=== PATIENT | female | born 1945 | race Caucasian/White ===

== ENCOUNTER 2017-01-31 09:22 | Inpatient (IN) | payer OTHER, MEDICARE ==
[~2017-01-31] VITALS: Ht 160 cm; Wt 107.3 kg
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
--- NOTE | 2017-01-31 14:08 | ED ORDER SUMMARY ---
..... Patient: ELVIS CORTEZ OrderSheet [facility] VisitID: [id number] [address] [place] [address] 71y, F Registration Date/Time: 01/31/2017 ORDER SHEET Weight: 97.5 kg (stated) Allergies: LIsinopril GENERAL ORDERS: Chest 2V Urgent (10:34 01/31/2017 Ann LEYVA) (Ack 10:37 Edwin) (11:07 MARYoerner) Hand 3 or 4V Right Urgent (10:34 01/31/2017 Ann LEYVA) (Ack 10:37 Edwin) (11:07 MARYoerner) Jointer Submarine Cable (Continuous) (10:34 01/31/2017 Ann LEYVA) (11:26 SStone R.N.) CBC w Diff Urgent (10:35 01/31/2017 Ann LEYVA) (Ack 10:37 Edwin) (11:26 SStone R.N.) CMP Urgent (10:35 01/31/2017 Ann LEYVA) (Ack 10:37 Edwin) (11:26 SStone R.N.) UA-Culture if indicated Urgent (10:35 01/31/2017 Ann LEYVA) (Ack 10:37 Edwin) (13:48 ALawrence ER Tech1) Amylase Urgent (10:35 01/31/2017 Ann LEYVA) (Ack 10:37 Edwin) (11:26 SStone R.N.) Lipase Urgent (10:35 01/31/2017 Ann LEYVA) (Ack 10:37 Edwin) (11:26 SStone R.N.) CPK Urgent (10:35 01/31/2017 Ann LEYVA) (Ack 10:37 Edwin) (11:26 SStone R.N.) Troponin-I Urgent (10:35 01/31/2017 Ann LEYVA) (Ack 10:37 Edwin) (11:26 SStone R.N.) Pulse oximeter (10:35 01/31/2017 Ann LEYVA) (11:26 SStone R.N.) EKG - ER Stat (10:35 01/31/2017 Ann LEYVA) (10:37 Edwin) Ribs Bilat Urgent (14:07 01/31/2017 Ann LEYVA) (Ack 14:10 Edwin) (14:30 Edwin) MEDICATION ORDERS: IV FLUIDS: Dilaudid IV 0.5 mg (HIGH ALERT MEDICATION, NOW) (10:35 01/31/2017 Ann LEYVA) (10:54 SStone R.N.) Zofran IV 4 mg (NOW) (10:35 01/31/2017 Ann LEYVA) (10:54 SStone R.N.) IV Saline Lock (10:35 01/31/2017 Ann LEYVA) (Ack 10:54 SStone R.N.) Dilaudid IV 0.25 mg (HIGH ALERT MEDICATION, NOW) (16:18 01/31/2017 SStone R.N. verbal order read back to Ann LEYVA) (16:18 SStone R.N.) ORDER SHEET NOTES: [Electronically signed by Liz Florian R.N. (18:21 01/31/2017)] [Electronically signed by Bubba Rushing MD (21:37 02/01/2017)] [Electronically locked/signed by Liz Florian R.N. (18:21 01/31/2017)]
--- NOTE | 2017-01-31 14:08 | ED ORDER SUMMARY ---
..... Patient: ELVIS CORTEZ OrderSheet [facility] VisitID: [id number] [address] [place] [address] 71y, F Registration Date/Time: 01/31/2017 ORDER SHEET Weight: 97.5 kg (stated) Allergies: LIsinopril GENERAL ORDERS: Chest 2V Urgent (10:34 01/31/2017 Ann LEYVA) (Ack 10:37 Edwin) (11:07 MARYoerner) Hand 3 or 4V Right Urgent (10:34 01/31/2017 Ann LEYVA) (Ack 10:37 Edwin) (11:07 MARYoerner) Dwarf Tree Grower (Continuous) (10:34 01/31/2017 Ann LEYVA) (11:26 SStone R.N.) CBC w Diff Urgent (10:35 01/31/2017 Ann LEYVA) (Ack 10:37 Edwin) (11:26 SStone R.N.) CMP Urgent (10:35 01/31/2017 Ann LEYVA) (Ack 10:37 Edwin) (11:26 SStone R.N.) UA-Culture if indicated Urgent (10:35 01/31/2017 Ann LEYVA) (Ack 10:37 Edwin) (13:48 ALawrence ER Tech1) Amylase Urgent (10:35 01/31/2017 Ann LEYVA) (Ack 10:37 Edwin) (11:26 SStone R.N.) Lipase Urgent (10:35 01/31/2017 Ann LEYVA) (Ack 10:37 Edwin) (11:26 SStone R.N.) CPK Urgent (10:35 01/31/2017 Ann LEYVA) (Ack 10:37 Edwin) (11:26 SStone R.N.) Troponin-I Urgent (10:35 01/31/2017 Ann LEYVA) (Ack 10:37 Edwin) (11:26 SStone R.N.) Pulse oximeter (10:35 01/31/2017 Ann LEYVA) (11:26 SStone R.N.) EKG - ER Stat (10:35 01/31/2017 Ann LEYVA) (10:37 Edwin) Ribs Bilat Urgent (14:07 01/31/2017 Ann LEYVA) (Ack 14:10 Edwin) (14:30 Edwin) MEDICATION ORDERS: IV FLUIDS: Dilaudid IV 0.5 mg (HIGH ALERT MEDICATION, NOW) (10:35 01/31/2017 Ann LEYVA) (10:54 SStone R.N.) Zofran IV 4 mg (NOW) (10:35 01/31/2017 Ann LEYVA) (10:54 SStone R.N.) IV Saline Lock (10:35 01/31/2017 Ann LEYVA) (Ack 10:54 SStone R.N.) Dilaudid IV 0.25 mg (HIGH ALERT MEDICATION, NOW) (16:18 01/31/2017 SStone R.N. verbal order read back to Ann LEYVA) (16:18 SStone R.N.) ORDER SHEET NOTES: [Electronically signed by Liz Florian R.N. (18:21 01/31/2017)] [Electronically signed by Bubba Rushing MD (21:37 02/01/2017)] [Electronically locked/signed by Liz Florian R.N. (18:21 01/31/2017)]
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
--- NOTE | 2017-01-31 15:41 | DIAGNOSTIC IMAGING REPORT ---
PROCEDURE: XR RIBS BILATERAL INDICATION: TRAUMA/INJURY TECHNIQUE: Five views of the right and left ribs with single PA view chest. COMPARISON: None. FINDINGS: LEFT RIBS: No displaced rib fractures. No suspicious rib lesions. RIGHT RIBS: No displaced rib fractures. No suspicious rib lesions. CHEST: Normal cardiomediastinal contour. Clear lungs without pleural effusion, pneumothorax, or contusion. The other visible osseous structures are intact. IMPRESSION: 1. Intact ribs. 2. Normal chest without radiographic evidence of trauma.
[2017-01-31 17:43] VITALS: BP 135/90
[2017-01-31] MEDS ORDERED: VITAMIN D-31000 UNIT PO (18:33)
[2017-01-31] MEDS ORDERED: CITALOPRAM HYDR20 MG PO (18:33)
[2017-01-31] MEDS ORDERED: LEVO-T112 MCG PO (18:36)
[2017-01-31] MEDS ORDERED: CORGARD20 MG PO (18:37)
[2017-01-31] MEDS ORDERED: HCTZ/TRIAMTEREN1 TA1 PO (18:37)
[2017-01-31] MEDS ORDERED: UROCIT-K 10 PO (18:39)
[2017-01-31 21:56] VITALS: BP 145/73
[2017-01-31 22:13] VITALS: BP 145/50
[2017-01-31 23:27] VITALS: BP 147/47
[2017-02-01] VITALS (22 sets, daily range): BP systolic 91–1112; BP diastolic 44–77
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
--- NOTE | 2017-02-01 07:39 | DIAGNOSTIC IMAGING REPORT ---
PROCEDURE: XR CHEST 1 VIEW INDICATION: Rep distress TECHNIQUE: Single view chest. 07:06 hours COMPARISON: 01/31/2017 FINDINGS: Low lung volumes. Lordotic patient position. Moderate cardiomegaly. Normal aortic contour. No central venous congestion. Left retrocardiac atelectatic change. The visible lung sierra are otherwise clear. No pneumothorax or new pleural effusion. Intact osseous structures. IMPRESSION: 1. Cardiomegaly with retrocardiac atelectasis. 2. No radiographic evidence of CHF.
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
--- NOTE | 2017-02-01 10:49 | DIAGNOSTIC IMAGING REPORT ---
PROCEDURE: CTA THORAX WITH CONTRAST INDICATION: resp failure, high D-dimer TECHNIQUE: 85 ml of Isovue 370 was injected intravenously and axial images were obtained of the entire thorax with 3D sagittal and coronal MIP reconstructions. COMPARISON: Chest x-ray 02/01/2017. FINDINGS: No evidence of pulmonary emboli, aortic dissection or aneurysm. Mild bibasilar atelectasis versus pneumonia. No pneumothorax. No effusion or adenopathy. Mild atherosclerosis of the aorta. Mild cardiomegaly. There are fractures of the right 4th to 9th ribs with no to minimal displacement. Mild degenerative changes of the spine. Liver contour irregularity suggestive of cirrhosis. Several small calcified gallstones. IMPRESSION: 1. Fractures of the right 4th to 9th ribs with no to minimal displacement 2. Mild bibasilar atelectasis versus pneumonia 3. Mild cardiomegaly 4. Cirrhosis 5. Cholelithiasis 6. Results discussed with Dr. Munoz
[2017-02-01] MEDS ORDERED: CYCLOBENZAPRINE10 MG PO (13:16)
--- NOTE | 2017-02-01 21:38 | ED MAR SUMMARY ---
..... Medication Administration Record [facility] [address] [place] [address] Patient: ELVIS CORTEZ Visit ID: [id number] 71y, F Weight: 97.5 kg Height/Length: 63 in BMI: 38.1 ALLERGIES: LIsinopril Given 10:49 01/31/2017 Liz Florian R.N. Medication Administered: DILAUDID [IVP] (HYDROMORPHONE HCL PF), Dose: 0.5 mg IVP over 2 minute(s), Site: #1 left AC. Medication Ordered: Dilaudid IV 0.5 mg (HIGH ALERT MEDICATION, NOW). Given 10:54 01/31/2017 Liz Florian R.N. Medication Administered: ZOFRAN [IVP] (ONDANSETRON HCL), Dose: 4 mg IVP over 2 minute(s), Site: #1 left AC. Medication Ordered: Zofran IV 4 mg (NOW). Given 16:18 01/31/2017 Liz Florian R.N. Medication Administered: DILAUDID [IVP] (HYDROMORPHONE HCL PF), Dose: 0.25 mg IVP over 2 minute(s), Site: #1 left AC. Medication Ordered: Dilaudid IV 0.25 mg (HIGH ALERT MEDICATION, NOW).
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
--- NOTE | 2017-02-01 21:38 | ED MED RECONCILIATION SUMMARY ---
Patient: ELVIS CORTEZ Medication Reconciliation Report [facility] VisitID: [id number] [address] [place] [address] 71y, F Registration Date/Time: 01/31/2017 Weight: 97.5 kg Height/Length: 63 in. BMI: 38.1 ALLERGIES: LIsinopril The patient's Home Medications are listed below: THE FOLLOWING MEDICATIONS NEED TO BE RECONCILED: Citalopram 30 mg daily HCTZ 25 MG DAILY Levothyroxine 112 mcg daily Nadolol 40 mg daily Trazodone 50 mg 1-2 tabets qhs prn Vitamin D daily The source(s) of the original Home Medication information: Not obtained. The following Medications were given to the patient in the Emergency Department: Dilaudid [IVP] IVP 0.5 mg, administered: 01/31/2017 10:49:00 AM Zofran [IVP] IVP 4 mg, administered: 01/31/2017 10:54:00 AM Dilaudid [IVP] IVP 0.25 mg, administered: 01/31/2017 4:18:00 PM The following Medications were prescribed to the patient: None.
--- NOTE | 2017-02-01 21:38 | ED MAR SUMMARY ---
..... Medication Administration Record [facility] [address] [place] [address] Patient: ELVIS CORTEZ Visit ID: [id number] 71y, F Weight: 97.5 kg Height/Length: 63 in BMI: 38.1 ALLERGIES: LIsinopril Given 10:49 01/31/2017 Liz Florian R.N. Medication Administered: DILAUDID [IVP] (HYDROMORPHONE HCL PF), Dose: 0.5 mg IVP over 2 minute(s), Site: #1 left AC. Medication Ordered: Dilaudid IV 0.5 mg (HIGH ALERT MEDICATION, NOW). Given 10:54 01/31/2017 Liz Florian R.N. Medication Administered: ZOFRAN [IVP] (ONDANSETRON HCL), Dose: 4 mg IVP over 2 minute(s), Site: #1 left AC. Medication Ordered: Zofran IV 4 mg (NOW). Given 16:18 01/31/2017 Liz Florian R.N. Medication Administered: DILAUDID [IVP] (HYDROMORPHONE HCL PF), Dose: 0.25 mg IVP over 2 minute(s), Site: #1 left AC. Medication Ordered: Dilaudid IV 0.25 mg (HIGH ALERT MEDICATION, NOW).
--- NOTE | 2017-02-01 21:38 | ED MED RECONCILIATION SUMMARY ---
Patient: ELVIS CORTEZ Medication Reconciliation Report [facility] VisitID: [id number] [address] [place] [address] 71y, F Registration Date/Time: 01/31/2017 Weight: 97.5 kg Height/Length: 63 in. BMI: 38.1 ALLERGIES: LIsinopril The patient's Home Medications are listed below: THE FOLLOWING MEDICATIONS NEED TO BE RECONCILED: Citalopram 30 mg daily HCTZ 25 MG DAILY Levothyroxine 112 mcg daily Nadolol 40 mg daily Trazodone 50 mg 1-2 tabets qhs prn Vitamin D daily The source(s) of the original Home Medication information: Not obtained. The following Medications were given to the patient in the Emergency Department: Dilaudid [IVP] IVP 0.5 mg, administered: 01/31/2017 10:49:00 AM Zofran [IVP] IVP 4 mg, administered: 01/31/2017 10:54:00 AM Dilaudid [IVP] IVP 0.25 mg, administered: 01/31/2017 4:18:00 PM The following Medications were prescribed to the patient: None.
[2017-02-02] VITALS (20 sets, daily range): BP systolic 113–156; BP diastolic 42–85
--- NOTE | 2017-02-02 14:17 | Progress Note ---
Subjective General Patient seen and examined. Patient very drowsy still but arousable and able to communicate in full sentences. Patient encourage to use incentive spirometer, however pain is precluding her from using is appropriately. Constitutional Other (unable to respond- too drowsy). Physical Exam Vital Signs / I&Os Vital Signs Date Time Temp Pulse Resp B/P Pulse O2 O2 Flow FiO2 Ox Delivery Rate 02/02 1500 98.4 73 20 126/49 97 Nasal 2.0 Cannula 02/02 1416 77 20 113/48 95 Nasal 2.0 Cannula 02/02 1322 98.8 02/02 1317 73 20 121/64 96 Nasal 2.0 Cannula 02/02 1141 2.0 02/02 1030 2.5 02/02 1000 75 131/44 96 Nasal 2.0 Cannula 02/02 0853 71 24 124/85 Nasal 2.0 Cannula 02/02 0800 2.0 02/02 0759 2.0 02/02 0721 98.2 81 24 126/57 93 Nasal 2.0 Cannula 02/02 0526 98.8 74 20 120/50 93 Nasal 2.0 Cannula 02/02 0432 98.8 65 18 140/56 92 Nasal 2.0 Cannula 02/02 0350 98.6 72 18 128/42 92 Nasal 2.0 Cannula 02/02 0202 98.6 62 18 156/60 92 Nasal 2.0 Cannula 02/02 0105 98.6 78 18 156/57 93 Nasal 2.0 Cannula 02/02 0016 98.6 64 20 143/55 94 Nasal 2.0 Cannula 02/01 2313 130/73 02/01 2312 64 100 Nasal 2.0 Cannula 02/01 2227 98.8 02/01 2219 63 115/50 100 Nasal 2.0 Cannula 02/01 2100 98.1 65 18 91/56 100 Nasal 2.0 Cannula 02/01 2000 97.7 62 18 105/54 100 Nasal 2.0 Cannula 02/01 1959 Nasal 2.0 Cannula 02/01 1913 2.0 02/01 1900 97.7 59 18 107/44 100 Nasal 2.0 Cannula 02/01 1800 98.4 62 18 114/53 100 Nasal 2.0 Cannula 02/01 1611 98.4 58 18 98/50 96 Nasal 2.0 Cannula I&O 02/01 0800 02/01 1600 02/02 0000 Intake Total 560 151 8978 Output Total 470 150 350 Balance 350 269 2455 General Appearance Alert, Oriented X3, No acute distress HEENT Atraumatic, PERRLA, Moist mucous membranes Lungs Clear to auscultation, - decreased air exchange - shallow breathing Neck No JVD, No masses, No thyromegaly Cardiovascular Regular rate and rhythm, No murmurs, gallops, rubs Abdomen Soft, No tenderness, No guarding Extremities No edema, Normal pulses, No tenderness Skin No Breakdown Neurological Normal speech, Normal tone, Cranial nerves intact, Strength 5/5 x4 ext's LAB Results Laboratory Tests 02/01 02/02 02/02 02/02 1800 0400 0510 1013 Blood Gas Sample Site LR RR Total CO2 (24.0 - 30.0 mmol/L) 32.0 29.7 ABG pH (7.35 - 7.45) 7.26 7.23 ABG pCO2 at Pt Temp (35 - 45 mmHg) 67.0 66.2 ABG pO2 at Pt Temp (60.0 - 80.0 mmHg) 64.0 62.6 ABG HCO3 (20.0 - 26.0 mmol/L) 30.0 27.7 ABG O2 Sat Calc/Chiquis (95.1 - 100.0 %) 91.2 90.2 ABG Base Excess (-6.0 - -6.0 mmol/L) 2.6 0.1 ABG Reduced Hgb (%) 8.5 9.7 ABG Carboxyhemoglobin (0.5 - 1.5 %) 2.8 2.4 ABG Methemoglobin (0.4 - 1.5 %) 0.3 -0.9 Duong Test YES YES Other Total Hgb (12.0 - 16.0 g/dL) 9.6 9.4 A-a O2 Gradient (7.0 - 14.0 mmHg) 58.2 75.7 Hgb O2 Saturation (95.0 - 100.0 %) 88.4 88.8 Respiration Rate (/MIN) 22 O2 Liters/Min (0 - 20 L/MIN) 2 2.5 Vent Mode NC SB FiO2 (20 - 101 %) 28 30 Chemistry Plasma Sodium (136 - 145 mmol/L) 141 Plasma Potassium (3.5 - 5.1 mmol/L) 4.9 Plasma Chloride (98 - 107 mmol/L) 107 CO2 (Enzymatic) (21 - 32 mmol/L) 30 BUN (7 - 18 mg/dL) 24 Creatinine (0.6 - 1.3 mg/dL) 1.7 Est GFR ( Amer) (mL/min) 38.27 Est GFR (Non-Af Amer) (mL/min) 31.58 Glucose (70 - 110 mg/dL) 215 Plasma Calcium (8.5 - 10.1 mg/dL) 8.7 Plasma Magnesium (1.8 - 2.4 mg/dL) Cancelled 2.5 Hematology WBC (4.5 - 11.5 K/uL) 15.0 RBC (4.00 - 5.20 M/uL) 3.68 Hgb (12.0 - 16.0 gm/dL) 9.6 Hct (36.0 - 46.0 %) 31.3 MCV (80 - 100 fL) 85 MCH (26 - 34 pg) 26 RDW (11.6 - 14.8 %) 19.6 Neut % (Auto) (50 - 75 %) 83.8 Lymph % (Auto) (25 - 40 %) 6.7 [place] % (Auto) (3 - 14 %) 8.9 Eos % (Auto) (0 - 4 %) 0.5 Baso % (Auto) (0 - 2 %) 0.1 Plt Count, EDTA (150 - 400 K/uL) 80 RBC Morphology (11145 A) 1+ HYPOCHROMIA PUBS MCHC (31 - 37 g/dL) 31 Assessment and Plan Problem List 1. Lung contusion Plan - present with rib fractures - will encourage incentive spirometry - will obtain ABGs periodically - will keep patient on continuous pulse oximetry - pain control warranted albiet with NSAIDs and lidocaine - pt very sensitive to opioids 2. Respiratory failure, unspecified with hypercapnia Plan - secondary to rib fractures and underlying lung disease - pt is developing hypercapnia secondary to inadequate lung expansion - will control pain as much as feasible - will monitor for over sedation - incentive spirometry use 3. HTN (hypertension) Plan - chronic - c/w home medications 4. Cirrhosis of liver Plan - stable - will trend ammonia - will provide lactulose to titrate to 5 bowel movements a day 5. Asthma Plan - stable - will continue with duonebs
[2017-02-03] VITALS (22 sets, daily range): BP systolic 96–195; BP diastolic 40–94
--- NOTE | 2017-02-03 14:10 | Progress Note ---
Subjective General Pt still arousable, however when staff and famiily are not in the room patient does not use incentive spirometry. Patient is otherwise persistenly altered from hypercapnia and pain meds. If patient continues to decompensate will decide to intubate. Constitutional Other (too altered to assess). Physical Exam Vital Signs / I&Os Vital Signs Date Time Temp Pulse Resp B/P Pulse O2 O2 Flow FiO2 Ox Delivery Rate 02/08 1606 2.0 02/08 1449 98.1 95 20 136/42 91 Nasal 2.0 Cannula 02/08 1139 2.0 02/08 1010 98.2 95 20 138/53 93 Nasal 2.0 Cannula 02/08 0912 2.0 02/08 0725 3.5 02/08 0647 98.4 96 24 149/44 93 Nasal 2.0 Cannula 02/08 0300 98.1 86 22 154/51 94 Nasal 2.0 Cannula 02/08 0257 2.0 02/07 2343 2.0 02/07 2230 98.2 80 20 149/54 96 Nasal 3.0 Cannula 02/07 2045 3.0 02/07 2030 Nasal 3.0 Cannula 02/07 2017 4.0 02/07 1903 81 20 142/47 98 Nasal 4.0 Cannula 02/07 1810 98.2 80 20 143/48 97 Nasal 4.0 Cannula 02/07 1808 4.0 I&O 02/07 0800 02/07 1600 02/08 0000 Intake Total 1444 2000 1965 Output Total 328 353 158 Balance 1116 1647 1807 General Appearance Mild distress HEENT PERRLA, Moist mucous membranes Lungs - bilateral ronchi and wheezes Neck No JVD, No masses Cardiovascular Regular rate and rhythm, No murmurs, gallops, rubs Abdomen Soft, - slightly distended Extremities Normal pulses, No tenderness Skin No Breakdown Neurological Normal tone, Cranial nerves intact, No lateralizing signs Psych/Mental Status Mood normal LAB Results Laboratory Tests 02/08 0940 Chemistry Plasma Sodium (136 - 145 mmol/L) 141 Plasma Potassium (3.5 - 5.1 mmol/L) 4.0 Plasma Chloride (98 - 107 mmol/L) 107 CO2 (Enzymatic) (21 - 32 mmol/L) 24 BUN (7 - 18 mg/dL) 30 Creatinine (0.6 - 1.3 mg/dL) 1.2 Est GFR ( Amer) (mL/min) 57.21 Est GFR (Non-Af Amer) (mL/min) 47.20 Glucose (70 - 110 mg/dL) 129 Plasma Calcium (8.5 - 10.1 mg/dL) 8.0 Total Bilirubin (0.0 - 1.0 mg/dL) 2.1 AST (15 - 37 U/L) 41 ALT (12 - 78 U/L) 25 Alkaline Phosphatase (46 - 116 U/L) 87 Total Protein (6.4 - 8.2 g/dL) 5.9 Albumin (3.3 - 5.0 g/dL) 2.4 Hematology WBC (4.5 - 11.5 K/uL) 22.2 Corrected WBC (auto) (K/uL) 22.0 RBC (4.00 - 5.20 M/uL) 3.63 Hgb (12.0 - 16.0 gm/dL) 9.5 Hct (36.0 - 46.0 %) 30.4 MCV (80 - 100 fL) 84 MCH (26 - 34 pg) 26 RDW (11.6 - 14.8 %) 21.7 Neut % (Auto) (50 - 75 %) 78 Lymph % (Auto) (25 - 40 %) 16 [place]oun % (Auto) (3 - 14 %) 0 Eos % (Auto) (0 - 4 %) 1 Baso % (Auto) (0 - 2 %) 0 Band Neutrophils % (0 - 8 %) 3 Metamyelocytes % (0 - 1 %) 2 Myelocytes (0 - 1 %) 0 Nucleated RBCs (0 - 1) 1 Other Cell Type 0 Plt Count, EDTA (150 - 400 K/uL) 125 Anisocytosis (manual) 3+ PUBS MCHC (31 - 37 g/dL) 31 Assessment and Plan Problem List 1. Lung contusion Plan - will provide pain control - will avoid oversedation due to poor liver processing ability - will monitor for over sedation 2. Respiratory failure, unspecified with hypercapnia Plan - pt has evidence of hypercapnia secondary to inadequate lung expansion and existing copd - will attempt bipap - sedation will be required - will encourge incentive spirometry - serial abgs 3. Cirrhosis of liver Plan - known history secondary to Hep C - currently in remission - hepatically adjust medication 4. HTN (hypertension) Plan - controlled - will hold anti-hypertensives in times of hypotension
--- NOTE | 2017-02-03 16:20 | Progress Note ---
Subjective General Patient seen and examined. Patient in the am was seen to have improved mentation , however the patient throughout the morning was waxing and waning in terms of mentation. A discussion was had with the family and it was decided that the best route of action was to intubate the patient electively was made. Patient was a difficult intubation however we were able to nasally intubate the patient with the assistance of a bronchoscope. Patient is otherwise hemodynamically stable. Constitutional Other (unable to assess ). Physical Exam Vital Signs / I&Os Vital Signs Date Time Temp Pulse Resp B/P Pulse O2 O2 Flow FiO2 Ox Delivery Rate 02/03 1607 114 24 106/94 96 Ventilator 02/03 1517 142 195/80 100 02/03 1423 93 100 02/03 1319 91 20 155/56 97 Nasal 2.0 Cannula 02/03 1224 95 20 158/60 93 Nasal 2.0 Cannula 02/03 1131 2.0 02/03 1111 99.1 02/03 1108 91 20 158/64 91 Nasal 1.0 Cannula 02/03 0900 87 20 141/71 94 Nasal 2.0 Cannula 02/03 0808 90 24 148/42 98 Nasal 3.0 Cannula 02/03 0745 Nasal 3.0 Cannula 02/03 0730 3.0 02/03 0657 90 24 133/40 93 Nasal 3.5 Cannula 02/03 0600 98.6 80 22 132/48 95 Nasal 3.5 Cannula 02/03 0520 98.8 87 22 107/73 91 Nasal 3.5 Cannula 02/03 0414 88 25 130/55 87 Nasal 3.5 Cannula 02/03 0312 82 22 120/48 96 Nasal 3.5 Cannula 02/03 0238 3.5 02/03 0210 97.2 83 24 143/54 95 Nasal Cannula 02/03 0114 82 22 128/58 89 Nasal 3.5 Cannula 02/03 0029 99.1 02/03 0019 97.9 87 22 121/51 90 Nasal 4.0 Cannula 02/02 2323 80 20 128/55 95 Nasal 4.0 Cannula 02/02 2200 98.1 81 24 132/59 93 Nasal 4.0 Cannula 02/02 2100 98.4 85 21 118/61 96 Nasal 4.0 Cannula 02/02 2021 Nasal 4.0 Cannula 02/02 2000 98.4 89 22 143/61 98 Nasal 4.0 Cannula 02/02 1905 4.0 02/02 1900 97.9 90 20 136/81 95 Nasal 4.0 Cannula 02/02 1800 98.6 81 20 115/74 91 Nasal 2.0 Cannula 02/02 1700 98.4 79 20 118/56 96 Nasal 2.0 Cannula I&O 02/02 0800 02/02 1600 02/03 0000 Intake Total 1169 598 3962 Output Total 250 Balance 5342 103 4459 General Appearance Alert, Oriented X3, No acute distress HEENT Atraumatic, PERRLA, Moist mucous membranes Lungs - bilateral ronchi with trace wheezes Neck No JVD, No masses Cardiovascular Regular rate and rhythm, No murmurs, gallops, rubs Abdomen Soft, No tenderness Extremities No clubbing, No edema, Normal pulses, No tenderness Skin No Breakdown Neurological Normal speech, Normal tone, Sensation intact, Cranial nerves intact , No lateralizing signs LAB Results Laboratory Tests 02/03 02/03 02/03 0445 0445 0500 Blood Gas Sample Site RR Total CO2 (24.0 - 30.0 mmol/L) 28.1 ABG pH (7.35 - 7.45) 7.24 ABG pCO2 at Pt Temp (35 - 45 mmHg) 60.7 ABG pO2 at Pt Temp (60.0 - 80.0 mmHg) 62.2 ABG HCO3 (20.0 - 26.0 mmol/L) 26.2 ABG O2 Sat Calc/Chiquis (95.1 - 100.0 %) 90.9 ABG Base Excess (-6.0 - -6.0 mmol/L) -1.0 ABG Reduced Hgb (%) 8.9 ABG Carboxyhemoglobin (0.5 - 1.5 %) 2.3 ABG Methemoglobin (0.4 - 1.5 %) -0.2 Duong Test YES Other Total Hgb (12.0 - 16.0 g/dL) 9.0 A-a O2 Gradient (7.0 - 14.0 mmHg) 97.2 Hgb O2 Saturation (95.0 - 100.0 %) 89.0 Respiration Rate (/MIN) 26 O2 Liters/Min (0 - 20 L/MIN) 3 Vent Mode NC FiO2 (20 - 101 %) 32 Chemistry Plasma Sodium (136 - 145 mmol/L) 143 Plasma Potassium (3.5 - 5.1 mmol/L) 5.0 Plasma Chloride (98 - 107 mmol/L) 109 CO2 (Enzymatic) (21 - 32 mmol/L) 26 BUN (7 - 18 mg/dL) 28 Creatinine (0.6 - 1.3 mg/dL) 1.6 Est GFR ( Amer) (mL/min) 41.05 Est GFR (Non-Af Amer) (mL/min) 33.87 Glucose (70 - 110 mg/dL) 216 Plasma Calcium (8.5 - 10.1 mg/dL) 8.8 Total Bilirubin (0.0 - 1.0 mg/dL) 1.6 AST (15 - 37 U/L) 43 ALT (12 - 78 U/L) 30 Alkaline Phosphatase (46 - 116 U/L) 64 Ammonia (11 - 32 umol/L) 38 Total Protein (6.4 - 8.2 g/dL) 6.3 Albumin (3.3 - 5.0 g/dL) 2.7 Hematology WBC (4.5 - 11.5 K/uL) 20.0 RBC (4.00 - 5.20 M/uL) 3.61 Hgb (12.0 - 16.0 gm/dL) 9.4 Hct (36.0 - 46.0 %) 30.9 MCV (80 - 100 fL) 86 MCH (26 - 34 pg) 26 RDW (11.6 - 14.8 %) 20.2 Neut % (Auto) (50 - 75 %) 54 Lymph % (Auto) (25 - 40 %) 16 [place] % (Auto) (3 - 14 %) 2 Eos % (Auto) (0 - 4 %) 0 Baso % (Auto) (0 - 2 %) 0 Band Neutrophils % (0 - 8 %) 28 Metamyelocytes % (0 - 1 %) 0 Myelocytes (0 - 1 %) 0 Other Cell Type 0 Plt Count, EDTA (150 - 400 K/uL) 72 Anisocytosis (manual) 2+ PUBS MCHC (31 - 37 g/dL) 30 Microbiology Date/Time Procedure - Status Source Growth 02/03 615 Blood Culture - RECD BLOOD 02/03 609 Blood Culture - RECD BLOOD Assessment and Plan Problem List 1. Respiratory failure, unspecified with hypercapnia Plan - secondary to copd and rib fractures - pts mentation was not improving significantly enoug and decision was made to intubate - will obtain serial blood gases - will obtain chest xray - will look to extubate once gases are normalized 2. Cirrhosis of liver Plan - no evidence worsening decompensation - will monitor for worsening distention - will adjust medication for hepatic clearance 3. Asthma Plan - duonebs q6 - will monitor lung function through abgs - will adjust ventilation settings as needed
--- NOTE | 2017-02-03 17:47 | DIAGNOSTIC IMAGING REPORT ---
PROCEDURE: XR CHEST 1 VIEW INDICATION: INTUBATION TECHNIQUE: Portable AP view 03:58 p.m. COMPARISON: Chest x-ray 02/01/2017. FINDINGS: Interval placement of ET tube in satisfactory position. Progression of retrocardiac and new right basilar infiltrates. Mild cardiomegaly with pulmonary vascular congestion. There is subcutaneous emphysema in the right lateral chest wall. Thorax is normal. IMPRESSION: 1. ET tube in satisfactory position 2. Bibasilar infiltrates 3. Cardiomegaly with new pulmonary vascular congestion 4. Subcutaneous emphysema in the right chest wall
--- NOTE | 2017-02-03 17:59 | DIAGNOSTIC IMAGING REPORT ---
PROCEDURE: XR CHEST 1 VIEW INDICATION: INTUBATION VERIFICATION TECHNIQUE: Portable AP view 04:10 p.m. COMPARISON: Chest x-ray 02/03/2017 at 03:58 p.m. FINDINGS: ET tube has been advanced and needs to be pulled back approximately 1.5 cm. No change in the bibasilar infiltrates, cardiomegaly and pulmonary vascular congestion. No right pneumothorax. No change in the subcutaneous emphysema in the right chest wall. Thorax is normal. IMPRESSION: 1. ET tube low which needs to be pulled back 1.5 cm 2. Bibasilar infiltrates 3. Cardiomegaly with mild pulmonary vascular congestion 4. Right chest wall subcutaneous emphysema 5. Results discussed with Dr. Munoz
--- NOTE | 2017-02-03 22:12 | OPERATIVE REPORT ---
DATE OF SURGERY: 02/03/2017 SURGEON: Ruiz Linda MD PREOPERATIVE DIAGNOSIS: 1. Respiratory failure POSTOPERATIVE DIAGNOSIS: 1. Respiratory failure PROCEDURE PERFORMED: 1. Emergency bronchoscopic intubation ANESTHESIA: Intravenous sedation. INDICATIONS: The patient is a 71-year-old woman suffering respiratory failure and requiring intubation. The anesthesia service was unable to intubate using their standard technique, and the surgery service was consulted. SURGICAL TECHNIQUE: The patient was treated in the ICU at the bedside. Surgical equipment was made immediately available. The nasopharynx was treated with liquid lidocaine and a bronchoscope was used. The 6.5 endotracheal tube was threaded up onto the bronchoscope, and the bronchoscope introduced into the nasopharynx. The vocal cords were visualized, and the bronchoscope pushed down through the vocal cords. Lidocaine was infused in the airway, following which the endotracheal tube was immediately advanced over the bronchoscope into the airway. The bronchoscope was withdrawn, and there was appropriate CO2 return, indicating intrabronchial intubation. Breath sounds were good. A side port adapter was attached to the end of the endotracheal tube and the bronchoscope reinserted and used to determine that the tube was in good position above the richar. A chest x-ray was also ordered to assure proper placement of the tube. The patient tolerated the procedure well.
[2017-02-04] VITALS (25 sets, daily range): BP systolic 87–152; BP diastolic 29–75
--- NOTE | 2017-02-04 07:33 | DIAGNOSTIC IMAGING REPORT ---
PROCEDURE: XR ABDOMEN 1 VIEW UPRIGHT INDICATION: NG TUBE PLACEMENT CHECK TECHNIQUE: Single view semiupright abdomen. COMPARISON: None. FINDINGS: NG tube is in good position with the tip below the diaphragm in the distal stomach directed right lateral. No free intraperitoneal air. Bibasilar lung opacities. Mild cardiomegaly. IMPRESSION: 1. NG tube in good position. 2. Bibasilar pulmonary parenchymal opacities. 3. Findings called to the floor.
--- NOTE | 2017-02-04 07:46 | DIAGNOSTIC IMAGING REPORT ---
PROCEDURE: XR CHEST 1 VIEW INDICATION: INTUBATED TECHNIQUE: Single view chest. 5:08 hours COMPARISON: Multiple prior studies including the most recent of 02/03/2017 FINDINGS: Endotracheal tube is in good position. Nasogastric tube is placed with the tip below the diaphragm. Heart size remains enlarged. Central vasculature is indistinct. Lung volumes are low. Hazy opacity diffusely throughout the left lung, most prominent at both lung bases. Thickening of the right minor fissure. Moderate right chest wall subcutaneous emphysema. No definite pneumothorax. IMPRESSION: 1. Tubes are in good position. 2. The central vasculature has become increasingly indistinct suggesting volume overload or worsening CHF. 3. Persistent bibasilar opacities suggestive of atelectasis, edema, contusion. 4. No change to right chest wall subcutaneous emphysema without definite pneumothorax. 5. Findings called to the floor.
--- NOTE | 2017-02-04 13:52 | DIAGNOSTIC IMAGING REPORT ---
PROCEDURE: US ART UPPER EXT DOPPLER-RIGHT INDICATION: Upper extremity swelling post trauma. CHECK PULSES. TECHNIQUE: [place] scale, color, and spectral Doppler imaging of the arterial and deep venous system in the right extremity. Compression techniques to assess venous patency were used where appropriate. The left upper extremity cannot be assessed given arm restraints and tape. COMPARISON: None. FINDINGS: The arterial system is patent. There is biphasic arterial flow in the subclavian, axillary arteries, triphasic arterial flow in the proximal brachial, and biphasic flow in the mid to distal brachial arteries in the upper arm. Distally, there is triphasic flow in the radial artery at the wrist, and throughout the forearm. Peak systolic velocities are as follows: Subclavian artery 34 cm/sec Axillary artery 63 cm/sec proximal 36 cm/sec distal Brachial artery 37 cm of the second proximal 68 cm/sec mid 28 cm/sec distal Radial artery in the forearm 75 cm/sec Interrogated segments of vein including the cephalic, and brachial veins demonstrate normal compressibility/patency. Basilic vein was not able to be evaluated due to the inability to position the patient. There is moderately extensive forearm edema diffusely. No suspicious fluid collections to suggest focal hematoma. IMPRESSION: 1. Appropriate arterial flow in the right extremity. 2. No evidence of right upper extremity DVT. 3. Moderate right forearm edema. 4. Findings called to the floor.
--- NOTE | 2017-02-04 13:56 | DIAGNOSTIC IMAGING REPORT ---
PROCEDURE: XR CHEST 1 VIEW INDICATION: PICC PLACEMENT TECHNIQUE: Single view chest. 1340 hours COMPARISON: 02/04/2017 at 05:08 hours FINDINGS: New right-sided PICC line is in place with the tip at the cavoatrial junction. Endotracheal and nasogastric tubes in place. Stable cardiomegaly and prominent central vasculature. Increasing left base opacity and persistent, stable right base opacity. No right pneumothorax. Moderate right chest wall/axillary subcutaneous emphysema. Stable osseous structures. IMPRESSION: 1. Right PICC line in good position. 2. Support tubes in good position. 3. Increasing left base opacity. 4. Preliminary findings called to the floor.
--- NOTE | 2017-02-04 15:36 | Progress Note ---
Subjective General Pt seen and examined. No acute events overnight. Patient has been resting, intubated without much problems. Blood gases have improved immensely. Physical Exam Vital Signs / I&Os Vital Signs Date Time Temp Pulse Resp B/P Pulse O2 O2 Flow FiO2 Ox Delivery Rate 02/08 1814 98.2 91 20 137/68 95 Nasal 2.0 Cannula 02/08 1606 2.0 02/08 1449 98.1 95 20 136/42 91 Nasal 2.0 Cannula 02/08 1139 2.0 02/08 1010 98.2 95 20 138/53 93 Nasal 2.0 Cannula 02/08 0912 2.0 02/08 0725 3.5 02/08 0647 98.4 96 24 149/44 93 Nasal 2.0 Cannula 02/08 0300 98.1 86 22 154/51 94 Nasal 2.0 Cannula 02/08 0257 2.0 02/07 2343 2.0 02/07 2230 98.2 80 20 149/54 96 Nasal 3.0 Cannula 02/07 2045 3.0 02/07 2030 Nasal 3.0 Cannula 02/07 2017 4.0 02/07 1903 81 20 142/47 98 Nasal 4.0 Cannula I&O 02/07 0800 02/07 1600 02/08 0000 Intake Total 1444 2000 1965 Output Total 328 353 158 Balance 1116 1647 1807 General Appearance No acute distress HEENT Atraumatic, Moist mucous membranes Lungs Clear to auscultation, - some basilar ronchi - wheezes have diminished Cardiovascular Regular rate and rhythm, No murmurs, gallops, rubs Abdomen Soft, No tenderness, No masses Extremities No cyanosis, No edema, Normal pulses Skin No Breakdown Neurological Normal speech, Sensation intact, Cranial nerves intact, No lateralizing signs Psych/Mental Status Mood normal LAB Results Laboratory Tests 02/08 0940 Chemistry Plasma Sodium (136 - 145 mmol/L) 141 Plasma Potassium (3.5 - 5.1 mmol/L) 4.0 Plasma Chloride (98 - 107 mmol/L) 107 CO2 (Enzymatic) (21 - 32 mmol/L) 24 BUN (7 - 18 mg/dL) 30 Creatinine (0.6 - 1.3 mg/dL) 1.2 Est GFR ( Amer) (mL/min) 57.21 Est GFR (Non-Af Amer) (mL/min) 47.20 Glucose (70 - 110 mg/dL) 129 Plasma Calcium (8.5 - 10.1 mg/dL) 8.0 Total Bilirubin (0.0 - 1.0 mg/dL) 2.1 AST (15 - 37 U/L) 41 ALT (12 - 78 U/L) 25 Alkaline Phosphatase (46 - 116 U/L) 87 Total Protein (6.4 - 8.2 g/dL) 5.9 Albumin (3.3 - 5.0 g/dL) 2.4 Hematology WBC (4.5 - 11.5 K/uL) 22.2 Corrected WBC (auto) (K/uL) 22.0 RBC (4.00 - 5.20 M/uL) 3.63 Hgb (12.0 - 16.0 gm/dL) 9.5 Hct (36.0 - 46.0 %) 30.4 MCV (80 - 100 fL) 84 MCH (26 - 34 pg) 26 RDW (11.6 - 14.8 %) 21.7 Neut % (Auto) (50 - 75 %) 78 Lymph % (Auto) (25 - 40 %) 16 [place] % (Auto) (3 - 14 %) 0 Eos % (Auto) (0 - 4 %) 1 Baso % (Auto) (0 - 2 %) 0 Band Neutrophils % (0 - 8 %) 3 Metamyelocytes % (0 - 1 %) 2 Myelocytes (0 - 1 %) 0 Nucleated RBCs (0 - 1) 1 Other Cell Type 0 Plt Count, EDTA (150 - 400 K/uL) 125 Anisocytosis (manual) 3+ PUBS MCHC (31 - 37 g/dL) 31 Assessment and Plan Problem List 1. Lung contusion Plan - pain adequately controlled - will 2. Respiratory failure, unspecified with hypercapnia Plan - resolved - will continue with duonebs and steroids - will look to extubate tomorrow - will c/w sedation 3. Cirrhosis of liver Plan - stable - medications hepatically adjusted 4. HTN (hypertension) Plan -hypotensive right now - will hold bp meds for the time being
--- NOTE | 2017-02-04 16:12 | Progress Note ---
Subjective General Pt seen and examined. Patient was stable all night with sedation and was able to tolerate being on the ventilator. Patients CO2 has improved dramatically. Will keep patient on venitlator for the time being. Constitutional Other (unable to assess- intubated ). Physical Exam Vital Signs / I&Os Vital Signs Date Time Temp Pulse Resp B/P Pulse O2 O2 Flow FiO2 Ox Delivery Rate 02/04 1606 76 30 96/39 100 Ventilator 35 02/04 1514 98.4 75 30 96/39 97 Ventilator 40 02/04 1411 81 30 115/52 100 Ventilator 35 02/04 1300 74 30 136/65 100 Ventilator 35 02/04 1200 73 30 107/64 Ventilator 35 02/04 1135 98.8 02/04 1111 73 30 91/40 96 Ventilator 35 02/04 0911 82 30 127/59 96 Ventilator 35 02/04 0811 79 30 142/65 100 Ventilator 35 02/04 0745 Ventilator 02/04 0717 95/48 02/04 0709 97.5 70 30 87/40 99 Ventilator 35 02/04 0626 99.7 78 30 106/47 97 Ventilator 35 02/04 0511 80 30 103/55 97 Ventilator 35 02/04 0414 93 30 152/58 95 Ventilator 35 02/04 0331 85 30 114/52 93 Ventilator 35 02/04 0228 86 30 118/57 96 Ventilator 40 02/04 0117 84 30 128/65 97 Ventilator 45 02/04 0012 98.6 81 30 131/67 96 Ventilator 50 02/03 2316 86 30 127/64 96 Ventilator 60 02/03 2215 99.1 94 30 133/60 96 Ventilator 60 02/03 2111 91 30 114/60 96 Ventilator 60 02/03 2013 90 31 111/56 96 Ventilator 60 02/03 1957 Ventilator 60 02/03 1912 2.0 02/03 1910 87 31 106/59 93 Ventilator 60 02/03 1817 99.0 02/03 1815 88 30 106/60 94 Ventilator 60 02/03 1721 30 60 02/03 1655 84 24 96/50 100 Ventilator 60 I&O 02/03 0800 02/03 1600 02/04 0000 Intake Total 738 516 6492 Output Total 150 Balance 447 016 2346 General Appearance No acute distress HEENT Atraumatic, Moist mucous membranes Lungs - bilateral ronchi Cardiovascular Regular rate and rhythm, Normal S1 and S2, No murmurs, gallops, rubs Abdomen Soft, No tenderness, No rebound, No masses Extremities No clubbing, No edema, Normal pulses, No tenderness Skin No Breakdown Neurological Normal speech, Normal tone, Cranial nerves intact, Strength 5/5 x4 ext's Psych/Mental Status Mood normal LAB Results Laboratory Tests 02/03 02/04 02/04 1703 0500 0505 Blood Gas Sample Site RR LR Total CO2 (24.0 - 30.0 mmol/L) 24.6 22.9 ABG pH (7.35 - 7.45) 7.27 7.40 ABG pCO2 at Pt Temp (35 - 45 mmHg) 50.8 34.9 ABG pO2 at Pt Temp (60.0 - 80.0 mmHg) 101.0 57.6 ABG HCO3 (20.0 - 26.0 mmol/L) 23.1 21.8 ABG O2 Sat Calc/Chiquis (95.1 - 100.0 %) 98.6 93.1 ABG Base Excess (-6.0 - -6.0 mmol/L) -3.6 -2.7 ABG Reduced Hgb (%) 1.4 6.8 ABG Carboxyhemoglobin (0.5 - 1.5 %) 2.1 2.0 ABG Methemoglobin (0.4 - 1.5 %) 0.0 -0.1 Duong Test YES YES Other Total Hgb (12.0 - 16.0 g/dL) 9.2 9.1 A-a O2 Gradient (7.0 - 14.0 mmHg) 557.4 152.2 Hgb O2 Saturation (95.0 - 100.0 %) 96.5 91.3 Respiration Rate (/MIN) 24 30 Vent Mode SIMV SIMV FiO2 (20 - 101 %) 100 35 Tidal Volume (cc) 450 350 PEEP (cmH2O) 7 7 Pressure Support (cmH2O) 5 7 Chemistry Plasma Sodium (136 - 145 mmol/L) 143 Plasma Potassium (3.5 - 5.1 mmol/L) 4.7 Plasma Chloride (98 - 107 mmol/L) 110 CO2 (Enzymatic) (21 - 32 mmol/L) 21 BUN (7 - 18 mg/dL) 34 Creatinine (0.6 - 1.3 mg/dL) 1.4 Est GFR ( Amer) (mL/min) 47.89 Est GFR (Non-Af Amer) (mL/min) 39.51 Glucose (70 - 110 mg/dL) 249 Plasma Calcium (8.5 - 10.1 mg/dL) 8.9 Total Bilirubin (0.0 - 1.0 mg/dL) 1.2 AST (15 - 37 U/L) 44 ALT (12 - 78 U/L) 27 Alkaline Phosphatase (46 - 116 U/L) 60 Total Protein (6.4 - 8.2 g/dL) 5.7 Albumin (3.3 - 5.0 g/dL) 2.3 Hematology WBC (4.5 - 11.5 K/uL) 17.9 RBC (4.00 - 5.20 M/uL) 3.63 Hgb (12.0 - 16.0 gm/dL) 9.4 Hct (36.0 - 46.0 %) 30.7 MCV (80 - 100 fL) 85 MCH (26 - 34 pg) 26 RDW (11.6 - 14.8 %) 20.7 Neut % (Auto) (50 - 75 %) 57 Lymph % (Auto) (25 - 40 %) 13 [place] % (Auto) (3 - 14 %) 0 Eos % (Auto) (0 - 4 %) 0 Baso % (Auto) (0 - 2 %) 0 Band Neutrophils % (0 - 8 %) 30 Metamyelocytes % (0 - 1 %) 0 Myelocytes (0 - 1 %) 0 Other Cell Type RARE GIANT PLATELET Plt Count, EDTA (150 - 400 K/uL) 79 Anisocytosis (manual) 2+ PUBS MCHC (31 - 37 g/dL) 31 Assessment and Plan Problem List 1. Respiratory failure, unspecified with hypercapnia Plan - secondary to existing COPD which is being exacerbated by rib fractures - after pt could not expel CO2 independetely the decision to intubate was made - thus far patient has no evidence of CO 2 retention - will continue to monitor blood gases 2. HTN (hypertension) Plan - will hold anti hypertensives for the time being 3. Cirrhosis of liver Plan - will adjust medications for impaired hepatic clearance - will c/w monitoring ammonia levels
[2017-02-05] VITALS (25 sets, daily range): BP systolic 109–175; BP diastolic 37–78
--- NOTE | 2017-02-05 06:27 | DIAGNOSTIC IMAGING REPORT ---
PROCEDURE: XR CHEST 1 VIEW INDICATION: Follow up intubation. TECHNIQUE: Portable AP view (0555 hours). COMPARISON: Compared to chest x-rays on 02/04/2017, 02/03/2017, and 02/01/2017. FINDINGS: ET tube, NG tube, right PIC line are in satisfactory position. Moderate improvement with resolving left basilar parenchymal changes with mild residual bibasilar atelectasis. Heart and mediastinum are normal. Thorax is normal. Resolving right subcutaneous emphysema. IMPRESSION: 1. ET, NG tubes, and right PIC line are in satisfactory position chest. 2. Resolving left basilar consolidation/atelectasis. 3. Mild residual bibasilar atelectasis. 4. Resolving right subcutaneous emphysema.
--- NOTE | 2017-02-05 15:52 | Progress Note ---
Subjective General Pt seen and examined. Patient has been stable overnight with acute events. Constitutional Other (unable to assess given intubat). Physical Exam Vital Signs / I&Os Vital Signs Date Time Temp Pulse Resp B/P Pulse O2 O2 Flow FiO2 Ox Delivery Rate 02/05 1503 77 30 144/58 91 Ventilator 30 02/05 1400 97.9 80 30 143/62 96 Ventilator 30 02/05 1300 77 30 96 Ventilator 30 02/05 1200 98.2 86 30 153/65 95 Ventilator 02/05 1110 98.1 76 30 132/49 93 Ventilator 02/05 1013 97.3 80 30 159/58 96 Ventilator 02/05 0910 98.1 73 30 98 Ventilator 02/05 0821 98.1 81 30 144/48 93 Ventilator 02/05 0730 Ventilator 30 02/05 0711 97.9 125 30 132/48 96 / 0618 98.4 63 126/48 96 Ventilator 35 02/05 0517 98.8 63 120/41 94 Ventilator 35 02/05 0411 69 118/47 93 Ventilator 35 02/05 0316 68 136/48 95 Ventilator 35 02/05 0214 65 133/44 93 Ventilator 35 02/05 0115 97.5 74 109/37 93 Ventilator 35 02/05 0029 97.5 69 139/43 95 Ventilator 35 02/04 2344 130/42 05 2327 97.9 70 118/29 95 Ventilator 35 02/04 2221 98.4 75 123/40 93 Ventilator 35 02/04 2111 99.1 71 134/47 98 Ventilator 35 02/04 2017 Ventilator 35 02/04 2016 98.1 80 117/41 100 Ventilator 35 02/04 1913 78 98/50 95 Ventilator 35 02/04 1909 77 99 Ventilator 35 02/04 1807 98.8 78 30 103/75 100 Ventilator 35 02/04 1704 86 30 115/64 100 Ventilator 35 02/04 1606 76 30 96/39 100 Ventilator 35 I&O 02/04 0800 02/04 1600 02/05 0000 Intake Total 1357 0 2459 Output Total 896 649 3317 Balance 839 -350 1004 General Appearance Alert, Oriented X3, No acute distress HEENT Atraumatic, PERRLA, Moist mucous membranes Lungs Clear to auscultation Cardiovascular Regular rate and rhythm, Normal S1 and S2, No murmurs, gallops, rubs Abdomen Soft, No tenderness Extremities No clubbing, No edema, Normal pulses, No tenderness Skin No Breakdown Neurological Normal speech, Normal tone, Sensation intact, Cranial nerves intact Psych/Mental Status Mood normal LAB Results Laboratory Tests 02/05 02/05 0425 0425 Chemistry Plasma Sodium (136 - 145 mmol/L) 145 Plasma Potassium (3.5 - 5.1 mmol/L) 4.0 Plasma Chloride (98 - 107 mmol/L) 112 CO2 (Enzymatic) (21 - 32 mmol/L) 24 BUN (7 - 18 mg/dL) 34 Creatinine (0.6 - 1.3 mg/dL) 1.2 Est GFR ( Amer) (mL/min) 57.21 Est GFR (Non-Af Amer) (mL/min) 47.20 Glucose (70 - 110 mg/dL) 146 Plasma Calcium (8.5 - 10.1 mg/dL) 8.5 Total Bilirubin (0.0 - 1.0 mg/dL) 1.3 AST (15 - 37 U/L) 37 ALT (12 - 78 U/L) 25 Alkaline Phosphatase (46 - 116 U/L) 58 Ammonia (11 - 32 umol/L) 32 Total Protein (6.4 - 8.2 g/dL) 5.3 Albumin (3.3 - 5.0 g/dL) 2.1 Hematology WBC (4.5 - 11.5 K/uL) 19.8 RBC (4.00 - 5.20 M/uL) 3.56 Hgb (12.0 - 16.0 gm/dL) 9.1 Hct (36.0 - 46.0 %) 29.7 MCV (80 - 100 fL) 83 MCH (26 - 34 pg) 26 RDW (11.6 - 14.8 %) 21.6 Neut % (Auto) (50 - 75 %) 79 Lymph % (Auto) (25 - 40 %) 9 [place] % (Auto) (3 - 14 %) 1 Eos % (Auto) (0 - 4 %) 1 Baso % (Auto) (0 - 2 %) 0 Band Neutrophils % (0 - 8 %) 10 Metamyelocytes % (0 - 1 %) 0 Myelocytes (0 - 1 %) 0 Other Cell Type RARE GIANT PLATELET Plt Count, EDTA (150 - 400 K/uL) 88 Hypochromic-Microcytic 2+ Anisocytosis (manual) 2+ PUBS MCHC (31 - 37 g/dL) 31 02/05 0500 Blood Gas Sample Site LR Total CO2 (24.0 - 30.0 mmol/L) 24.5 ABG pH (7.35 - 7.45) 7.39 ABG pCO2 at Pt Temp (35 - 45 mmHg) 38.7 ABG pO2 at Pt Temp (60.0 - 80.0 mmHg) 55.1 ABG HCO3 (20.0 - 26.0 mmol/L) 23.3 ABG O2 Sat Calc/Chiquis (95.1 - 100.0 %) 89.8 ABG Base Excess (-6.0 - -6.0 mmol/L) -1.6 ABG Reduced Hgb (%) 10.0 ABG Carboxyhemoglobin (0.5 - 1.5 %) 2.1 ABG Methemoglobin (0.4 - 1.5 %) 0.1 Duong Test NO Other Total Hgb (12.0 - 16.0 g/dL) 9.2 A-a O2 Gradient (7.0 - 14.0 mmHg) 150.6 Hgb O2 Saturation (95.0 - 100.0 %) 87.8 Respiration Rate (/MIN) 30 Vent Mode SIMV FiO2 (20 - 101 %) 35 Tidal Volume (cc) 350 PEEP (cmH2O) 7 Pressure Support (cmH2O) 7 Blood Gas Comments [id number] +7 Assessment and Plan Problem List 1. Respiratory failure, unspecified with hypercapnia Plan - secondary to copd and hypercapnia due to poor lung expansion - pt is currently stable and has appropriate blood gases - pt will be left on the ventilator until tomorrow - will repeat blood gases - will monitor for improvement 2. HTN (hypertension) Plan - pts blood pressure has been appropriate - will hold anti-hypertensives for the time being 3. Cirrhosis of liver Plan - stable - medication hepatically dosed - will continue to trend lfts
[2017-02-06] VITALS (24 sets, daily range): BP systolic 117–193; BP diastolic 40–99
--- NOTE | 2017-02-06 06:41 | DIAGNOSTIC IMAGING REPORT ---
PROCEDURE: XR CHEST 1 VIEW INDICATION: Patient intubated TECHNIQUE: Portable AP view 05:23 a.m. COMPARISON: Chest x-ray 02/05/2017 FINDINGS: Right PICC line, ET and NG tubes remain in satisfactory position. Low lung volumes with mild bibasilar atelectasis. Heart and mediastinum are normal. Right chest wall subcutaneous emphysema. IMPRESSION: 1. Right PICC line, ET and NG tubes in satisfactory position 2. Low lung volumes with bibasilar atelectasis
--- NOTE | 2017-02-06 16:29 | Progress Note ---
Subjective General Patient seen and examined. Patient is doing well, extubted today. Patient is currently breathing well however has upper air way stridor. Physical Exam Vital Signs / I&Os Vital Signs Date Time Temp Pulse Resp B/P Pulse O2 O2 Flow FiO2 Ox Delivery Rate 02/08 1814 98.2 91 20 137/68 95 Nasal 2.0 Cannula 02/08 1606 2.0 02/08 1449 98.1 95 20 136/42 91 Nasal 2.0 Cannula 02/08 1139 2.0 02/08 1010 98.2 95 20 138/53 93 Nasal 2.0 Cannula 02/08 0912 2.0 02/08 0725 3.5 02/08 0647 98.4 96 24 149/44 93 Nasal 2.0 Cannula 02/08 0300 98.1 86 22 154/51 94 Nasal 2.0 Cannula 02/08 0257 2.0 02/07 2343 2.0 02/07 2230 98.2 80 20 149/54 96 Nasal 3.0 Cannula 02/07 2045 3.0 02/07 2030 Nasal 3.0 Cannula 02/07 2017 4.0 I&O 02/07 0800 02/07 1600 02/08 0000 Intake Total 1444 2000 1965 Output Total 328 353 158 Balance 1116 1647 1807 General Appearance Alert, No acute distress HEENT Atraumatic, PERRLA, Moist mucous membranes Lungs Clear to auscultation Neck No JVD, No masses Cardiovascular Regular rate and rhythm Abdomen Soft, No tenderness, No masses Extremities No clubbing, No edema, Strength = upper ext's, Strength = lower ext' s Skin No Breakdown Neurological Normal speech, Normal tone, Cranial nerves intact Psych/Mental Status Mood normal LAB Results Laboratory Tests 02/08 0940 Chemistry Plasma Sodium (136 - 145 mmol/L) 141 Plasma Potassium (3.5 - 5.1 mmol/L) 4.0 Plasma Chloride (98 - 107 mmol/L) 107 CO2 (Enzymatic) (21 - 32 mmol/L) 24 BUN (7 - 18 mg/dL) 30 Creatinine (0.6 - 1.3 mg/dL) 1.2 Est GFR ( Amer) (mL/min) 57.21 Est GFR (Non-Af Amer) (mL/min) 47.20 Glucose (70 - 110 mg/dL) 129 Plasma Calcium (8.5 - 10.1 mg/dL) 8.0 Total Bilirubin (0.0 - 1.0 mg/dL) 2.1 AST (15 - 37 U/L) 41 ALT (12 - 78 U/L) 25 Alkaline Phosphatase (46 - 116 U/L) 87 Total Protein (6.4 - 8.2 g/dL) 5.9 Albumin (3.3 - 5.0 g/dL) 2.4 Hematology WBC (4.5 - 11.5 K/uL) 22.2 Corrected WBC (auto) (K/uL) 22.0 RBC (4.00 - 5.20 M/uL) 3.63 Hgb (12.0 - 16.0 gm/dL) 9.5 Hct (36.0 - 46.0 %) 30.4 MCV (80 - 100 fL) 84 MCH (26 - 34 pg) 26 RDW (11.6 - 14.8 %) 21.7 Neut % (Auto) (50 - 75 %) 78 Lymph % (Auto) (25 - 40 %) 16 [place] % (Auto) (3 - 14 %) 0 Eos % (Auto) (0 - 4 %) 1 Baso % (Auto) (0 - 2 %) 0 Band Neutrophils % (0 - 8 %) 3 Metamyelocytes % (0 - 1 %) 2 Myelocytes (0 - 1 %) 0 Nucleated RBCs (0 - 1) 1 Other Cell Type 0 Plt Count, EDTA (150 - 400 K/uL) 125 Anisocytosis (manual) 3+ PUBS MCHC (31 - 37 g/dL) 31 Assessment and Plan Problem List 1. Respiratory failure, unspecified with hypercapnia Plan - resolved - pt was extubated today with good results - no evidence of return of hypercapnia - will obtain serial abgs - no need for bipap at the moment 2. HTN (hypertension) Plan - blood pressure has been relatively normal - 3. Cirrhosis of liver Plan - stable - slight increase in abdominal girth - will have to contiue with fluid administration due to wavering blood pressure 4. Asthma Plan - stable - will c/w reguarly scheduled duonebs - lung exam is improved from prior to intubation 5. Airway stricture Plan - no stricture present - no further follow up required
[2017-02-07] VITALS (21 sets, daily range): BP systolic 114–166; BP diastolic 37–79
--- NOTE | 2017-02-07 05:46 | Progress Note ---
Subjective General Note Date: 02/07/2017 Admission Date: 01/31/2017 Hospital Day: 11 PCP: None Status: CCU Advanced Directive: Unknown Room: 306 Patient seen and examined at bedside. Patient had complaints of pain in the right rib cage overnight. Patient did well on nonrebreather mask. Patient's actual blood gas done last night improved from previous. Patient extubated well and stable. Patient receiving when necessary fentanyl for pain control. Patient has family support Physical Exam Vital Signs / I&Os Vital Signs Date Time Temp Pulse Resp B/P Pulse O2 O2 Flow FiO2 Ox Delivery Rate 02/07 0500 84 16 143/52 92 Mask 8.0 / 0404 83 19 141/54 99 Mask 8.0 / 0306 86 19 149/40 98 Mask 8.0 02/07 0204 98.1 78 19 129/41 96 Mask 8.0 / 0120 8.0 / 0108 82 20 151/65 94 Mask 8.0 / 0004 84 16 132/46 93 Mask 8.0 05/ 2311 98.1 74 16 136/40 95 Mask 8.0 05/30 2207 77 16 132/47 98 Mask 8.0 05/30 2200 8.0 05/30 2115 70 16 140/49 95 Mask 8.0 05/30 2042 8.0 05/30 2004 70 16 137/41 94 Mask 8.0 05/30 1905 97.9 73 16 127/48 96 Mask 8.0 05/30 1811 78 16 136/65 100 Mask 8.0 05/30 1710 82 16 143/51 100 Mask 8.0 05/30 1600 94 16 127/44 100 Mask 8.0 05/30 1520 80 16 139/51 97 Mask 8.0 05/30 1406 92 20 166/49 95 Mask 05/30 1300 90 24 193/63 92 Mask 8.0 05/30 1215 80 22 173/55 96 Mask 40 05/30 1106 87 26 153/55 97 Mask 8.0 05/30 1013 97.5 86 117/99 100 05/30 0958 Ventilator 2.0 05/30 0901 71 30 145/55 94 Ventilator 05/30 0805 74 30 146/56 94 Ventilator 30 05/30 0658 98.2 65 30 134/52 99 Ventilator 30 05/30 0613 98.1 67 125/42 100 Ventilator 30 I&O 02/06 0800 02/06 1600 02/07 0000 Intake Total 2073 1250 741 Output Total 1557 305 605 Balance 516 945 136 General Appearance Alert, Cooperative, Mild distress HEENT EOMI Lungs clear bilateral breath sounds. Restricted chest wall with decreased air movement. Neck Supple Cardiovascular Regular rate and rhythm, Normal S1 and S2 Abdomen Soft, No tenderness Extremities mild swelling bilaterally with bruising on the forearms. Skin No Breakdown LAB Results Laboratory Tests 02/06 02/06 02/06 0725 0725 2206 Blood Gas Sample Site LR Total CO2 (24.0 - 30.0 mmol/L) 25.2 ABG pH (7.35 - 7.45) 7.35 ABG pCO2 at Pt Temp (35 - 45 mmHg) 43.6 ABG pO2 at Pt Temp (60.0 - 80.0 mmHg) 89.9 ABG HCO3 (20.0 - 26.0 mmol/L) 23.8 ABG O2 Sat Calc/Chiquis (95.1 - 100.0 %) 97.7 ABG Base Excess (-6.0 - -6.0 mmol/L) -1.7 ABG Reduced Hgb (%) 2.3 ABG Carboxyhemoglobin (0.5 - 1.5 %) 2.3 ABG Methemoglobin (0.4 - 1.5 %) -0.3 Duong Test YES Other Total Hgb (12.0 - 16.0 g/dL) 9.7 A-a O2 Gradient (7.0 - 14.0 mmHg) 73.4 Hgb O2 Saturation (95.0 - 100.0 %) 95.7 Respiration Rate (/MIN) 20 O2 Liters/Min (0 - 20 L/MIN) 8 Vent Mode COOL AERO FiO2 (20 - 101 %) 30 Chemistry Plasma Sodium (136 - 145 mmol/L) 144 Plasma Potassium (3.5 - 5.1 mmol/L) 3.2 Plasma Chloride (98 - 107 mmol/L) 111 CO2 (Enzymatic) (21 - 32 mmol/L) 24 BUN (7 - 18 mg/dL) 28 Creatinine (0.6 - 1.3 mg/dL) 1.0 Est GFR ( Amer) (mL/min) >60 Est GFR (Non-Af Amer) (mL/min) 58.26 Glucose (70 - 110 mg/dL) 129 Plasma Calcium (8.5 - 10.1 mg/dL) 8.4 Total Bilirubin (0.0 - 1.0 mg/dL) 1.4 AST (15 - 37 U/L) 26 ALT (12 - 78 U/L) 20 Alkaline Phosphatase (46 - 116 U/L) 67 Ammonia (11 - 32 umol/L) 27 Total Protein (6.4 - 8.2 g/dL) 5.5 Albumin (3.3 - 5.0 g/dL) 2.0 Coagulation Protein C Antigen Pending Hematology WBC (4.5 - 11.5 K/uL) 16.6 RBC (4.00 - 5.20 M/uL) 3.74 Hgb (12.0 - 16.0 gm/dL) 9.8 Hct (36.0 - 46.0 %) 31.0 MCV (80 - 100 fL) 83 MCH (26 - 34 pg) 26 RDW (11.6 - 14.8 %) 22.3 Neut % (Auto) (50 - 75 %) 62 Lymph % (Auto) (25 - 40 %) 7 [place] % (Auto) (3 - 14 %) 13 Eos % (Auto) (0 - 4 %) 1 Baso % (Auto) (0 - 2 %) 0 Band Neutrophils % (0 - 8 %) 15 Metamyelocytes % (0 - 1 %) 2 Myelocytes (0 - 1 %) 0 Other Cell Type 0 Plt Count, EDTA (150 - 400 K/uL) 85 Polychromasia RARE Hypochromic-Microcytic 1+ Anisocytosis (manual) 2+ Ovalocytes 1+ PUBS MCHC (31 - 37 g/dL) 02/07 0415 Chemistry Plasma Sodium (136 - 145 mmol/L) 146 Plasma Potassium (3.5 - 5.1 mmol/L) 3.8 Plasma Chloride (98 - 107 mmol/L) 112 CO2 (Enzymatic) (21 - 32 mmol/L) 24 BUN (7 - 18 mg/dL) 29 Creatinine (0.6 - 1.3 mg/dL) 1.0 Est GFR ( Amer) (mL/min) >60 Est GFR (Non-Af Amer) (mL/min) 58.26 Glucose (70 - 110 mg/dL) 121 Plasma Calcium (8.5 - 10.1 mg/dL) 8.2 Total Bilirubin (0.0 - 1.0 mg/dL) 1.8 AST (15 - 37 U/L) 27 ALT (12 - 78 U/L) 21 Alkaline Phosphatase (46 - 116 U/L) 71 Total Protein (6.4 - 8.2 g/dL) 5.3 Albumin (3.3 - 5.0 g/dL) 2.1 Hematology WBC (4.5 - 11.5 K/uL) 14.5 RBC (4.00 - 5.20 M/uL) 3.58 Hgb (12.0 - 16.0 gm/dL) 9.2 Hct (36.0 - 46.0 %) 29.6 MCV (80 - 100 fL) 83 MCH (26 - 34 pg) 26 RDW (11.6 - 14.8 %) 22.7 Neut % (Auto) (50 - 75 %) 70 Lymph % (Auto) (25 - 40 %) 18 [place] % (Auto) (3 - 14 %) 0 Eos % (Auto) (0 - 4 %) 2 Baso % (Auto) (0 - 2 %) 0 Band Neutrophils % (0 - 8 %) 10 Metamyelocytes % (0 - 1 %) 0 Myelocytes (0 - 1 %) 0 Other Cell Type FEW GIANT PLATELETS Plt Count, EDTA (150 - 400 K/uL) 86 Anisocytosis (manual) 2+ PUBS MCHC (31 - 37 g/dL) 31 Assessment and Plan Problem List 1. Respiratory failure, unspecified with hypercapnia Plan Extubated on 02/06/2017. Did relatively well overnight. Improving blood gas from day-to-day Replace electrolytes Continue with the O2 delivery with O2 wean Respiratory therapy 2. Cirrhosis of liver Plan Following labs. Caution with high sodium level. 3. HTN (hypertension) Plan Well maintain blood pressure. No changes. Patient did well with the speech and swallow evaluation. Patient had no issues. Patient's up and out of bed walking. Patient having mild deescalation mostly evening. 4. Lung contusion Plan Lung contusion on admission multiple rib fractures. Attempt to improve on pain control. Caution with sedation. 5. Asthma Plan History of asthma/obstructive lung disease Less pulmonary compliance Current status: Guarded / poor Anticipated discharge date: 2-3 days Anticipated discharge placement: home Patient care time: Time spent in chart review, patient interview, physical exam, CPOE, and care documentation: 30 minutes Visit to patient today: 2 Complexity of care: moderate. E&M Codes Rounding: Inpt-High/16102
[2017-02-08 03:00] VITALS: BP 154/51
--- NOTE | 2017-02-08 06:28 | Progress Note ---
Subjective General Note Date: 02/08/2017 Admission Date: 01/31/2017 Hospital Day: 9 PCP: None Status: AC Tele Advanced Directive: full colde Room: 306 Patient seen and examined at bedside; patient is alert awake. Patient reports that she had a better night's sleep last night. Patient has an appetite today. Patient has been up and out of bed and sitting in the chair and walking around the room. Patient's feeling stronger today. Physical Exam Vital Signs / I&Os Vital Signs Date Time Temp Pulse Resp B/P Pulse O2 O2 Flow FiO2 Ox Delivery Rate 02/08 0300 98.1 86 22 154/51 94 Nasal 2.0 Cannula 02/08 0257 2.0 02/07 2343 2.0 02/07 2230 98.2 80 20 149/54 96 Nasal 3.0 Cannula 02/07 2045 3.0 02/07 2030 Nasal 3.0 Cannula 02/07 2017 4.0 02/07 1903 81 20 142/47 98 Nasal 4.0 Cannula 02/07 1810 98.2 80 20 143/48 97 Nasal 4.0 Cannula 02/07 1808 4.0 02/07 1700 77 20 134/46 97 Nasal 4.0 Cannula 02/07 1610 76 20 114/47 96 Nasal 4.0 Cannula 02/07 1526 4.0 02/07 1507 86 20 141/53 93 Mask 8.0 02/07 1354 56 18 120/37 95 Mask 8.0 02/07 1306 93 18 131/38 97 Mask 8.0 02/07 1215 93 20 150/76 95 Mask 8.0 02/07 1159 8.0 02/07 1106 98.1 83 20 155/64 96 Mask 8.0 02/07 1019 98.1 82 22 166/79 96 Mask 8.0 02/07 0900 30 02/07 0900 98.1 78 18 152/51 100 Mask 8.0 02/07 0812 88 24 135/45 100 Mask 8.0 02/07 0725 80 20 143/55 100 Mask 8.0 I&O 02/07 0800 02/07 1600 02/08 0000 Intake Total 1444 2000 1965 Output Total 328 353 158 Balance 1116 1647 1807 General Appearance Cooperative, Mild distress Lungs Clear to auscultation, coughing, often clearing throat air movement is improving; sonorous rhonchi, random release Cardiovascular Normal S1 and S2 Extremities mild edematous changes in bilateral upper extremity. Multiple bruises. Assessment and Plan Problem List 1. Respiratory failure, unspecified with hypercapnia Plan There is continued improvement. No repeat on blood gas. Patient having mildly edematous changes, elevated fluids in the chest. Go ahead and give 20 mg IV Lasix 1 today. Continue to follow the electrolyte and replace as necessary. Q 6 hours with RT for Duonebs Wean O2 when appropriate. 2. Lung contusion Plan This also might lead to respiratory failure due to poor feeling. Patient is better pain control however still not completely healed. Continue with the pain control measures. Consider physical therapy for further rehabilitation. Maintain appropriate lung expansion with the help of RT 3. HTN (hypertension) Plan Well-established hypertension Maintain adequate control. Monitor. 4. Cirrhosis of liver Plan Prolonged healing time due to lack of synthetic production Appropriate therapy should be implemented. Avoid hepatotoxic medications 5. Asthma Plan COPD asthma prior diagnosis. Compromised pulmonary structures leading to prolonged healing from injury. Followed by RT Current status: Guarded / poor Anticipated discharge date: 2-3 days Anticipated discharge placement: home Patient care time: Time spent in chart review, patient interview, physical exam, CPOE, and care documentation: 30 minutes Visit to patient today: 1 Complexity of care: moderate E&M Codes Rounding: Inpt-High/[id number]
[2017-02-08 06:47] VITALS: BP 149/44
[2017-02-08 10:10] VITALS: BP 138/53
[2017-02-08 14:49] VITALS: BP 136/42
[2017-02-08 18:14] VITALS: BP 137/68
[2017-02-08 22:45] VITALS: BP 151/57
[2017-02-09 02:47] VITALS: BP 124/46
[2017-02-09 06:28] VITALS: BP 123/62
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
[2017-02-09 10:05] VITALS: BP 137/56
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
[2017-02-09 14:23] VITALS: BP 144/66
--- NOTE | 2017-02-09 18:12 | DIAGNOSTIC IMAGING REPORT ---
PROCEDURE: US ABDOMEN ULTRASOUND-LIMITED INDICATION: assess degree of ascites TECHNIQUE: Galeano scale sonographic imaging of the four quadrants of the abdomen. The patient was scanned semi upright in a chair. COMPARISON: CTA thorax 02/01/2017 FINDINGS: Limited images obtained due to patient position. Moderate amount of intra-abdominal ascites present in the bilateral lower quadrants and left upper quadrant. IMPRESSION: 1. Moderate intra-abdominal ascites. 2. Hepatic cirrhosis (seen by CTA) likely contributing factor.
[2017-02-09 18:52] VITALS: BP 137/65
[2017-02-09 22:11] VITALS: BP 150/54
--- NOTE | 2017-02-09 23:38 | DIAGNOSTIC IMAGING REPORT ---
PROCEDURE: XR CHEST 1 VIEW INDICATION: SHORTNESS OF BREATH TECHNIQUE: Portable AP view (2255 hours). COMPARISON: Compared to chest x-ray on 02/06/2017. FINDINGS: Allowing for suboptimal inspiration, there is mild left basilar atelectasis. Heart and mediastinum are normal. Thorax is normal. IMPRESSION: 1. Mild bibasilar atelectasis (findings accentuated due to suboptimal inspiration). 2. Otherwise negative chest. 3. Findings called to the intensive care unit.
[2017-02-10 01:58] VITALS: BP 160/60
[2017-02-10 06:43] VITALS: BP 141/56
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
--- NOTE | 2017-02-10 07:47 | DIAGNOSTIC IMAGING REPORT ---
PROCEDURE: XR CHEST 1 VIEW INDICATION: copd, elevated wbc TECHNIQUE: Portable AP view 07:09 a.m. COMPARISON: Chest x-ray 02/09/2017. FINDINGS: Poor inspiration with mild bibasilar atelectasis. Right PICC line in satisfactory position. Heart and mediastinum are normal. Thorax is normal. No significant interval change. IMPRESSION: 1. Poor inspiration with mild bibasilar atelectasis.
[2017-02-10 10:19] VITALS: BP 154/56
[2017-02-10 14:25] VITALS: BP 145/53
[2017-02-10 18:44] VITALS: BP 134/34
[2017-02-11 02:14] VITALS: BP 146/62
[2017-02-11 06:52] VITALS: BP 155/56
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
[2017-02-11 10:29] VITALS: BP 178/57
[2017-02-11 14:45] VITALS: BP 150/56
[2017-02-11 18:00] VITALS: BP 164/63
[2017-02-11 22:29] VITALS: BP 162/58
[2017-02-12] VITALS (7 sets, daily range): BP systolic 99–162; BP diastolic 47–65
[2017-02-13 02:23] VITALS: BP 145/66
[2017-02-13 06:27] VITALS: BP 150/77
[2017-02-13 14:53] VITALS: BP 145/57
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
[2017-02-13 18:19] VITALS: BP 148/54
[2017-02-14 03:48] VITALS: BP 148/65
[2017-02-14 06:52] VITALS: BP 149/57
[2017-02-14] MEDS ORDERED: IPRATROPIUM BROMIDE/ IN (12:29)
[2017-02-14] MEDS ORDERED: LIDODERM5 % TOP (12:31)
[2017-02-14] MEDS ORDERED: TRAMADOL HCL50 MG PO (12:32)
[2017-02-14] MEDS ORDERED: DELTASONE20 MG PO (12:35)
[2017-02-14] MEDS ORDERED: IPRATROPIUM BROMIDE/ INH (12:36)
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
== END 2017-02-14 13:45 | DRG 208 ==
LOC: ED SRH 09:22 → TRANS SRH 14:21 → ACUTE2 SRH 17:30 → CC SRH 21:44 → ACUTE3 SRH 02-12 08:22 → CC SRH 02-14 13:45
PROVIDERS: Surgery; ADMIT Emergency Medicine
PROC: 5A09357 Assistance with Respiratory Ventilation, Less than 24 Consecutive Hours, Continuous Positive Airway Pressure (ICD-10-PCS; 2017-01-31)
PROC: 0BH18EZ Insertion of Endotracheal Airway into Trachea, Via Natural or Artificial Opening Endoscopic (ICD-10-PCS; 2017-02-03)
PROC: 0CJS8ZZ Inspection of Larynx, Via Natural or Artificial Opening Endoscopic (ICD-10-PCS; 2017-02-03)
PROC: 5A09357 Assistance with Respiratory Ventilation, Less than 24 Consecutive Hours, Continuous Positive Airway Pressure (ICD-10-PCS; 2017-02-03)
PROC: 0D9670Z Drainage of Stomach with Drainage Device, Via Natural or Artificial Opening (ICD-10-PCS; 2017-02-03)
PROC: 5A1945Z Respiratory Ventilation, 24-96 Consecutive Hours (ICD-10-PCS; principal; 2017-02-03 15:45)
PROC: 02HV33Z Insertion of Infusion Device into Superior Vena Cava, Percutaneous Approach (ICD-10-PCS; 2017-02-04)
PROC: 0CJS8ZZ Inspection of Larynx, Via Natural or Artificial Opening Endoscopic (ICD-10-PCS; 2017-02-09)
DX: S27.321A Contusion of lung, unilateral, initial encounter (principal); J96.02 Acute respiratory failure with hypercapnia; S22.41XA Multiple fractures of ribs, right side, initial encounter for closed fracture; I85.10 Secondary esophageal varices without bleeding; J44.1 Chronic obstructive pulmonary disease with (acute) exacerbation; S60.221A Contusion of right hand, initial encounter; V47.5XXA Car driver injured in collision with fixed or stationary object in traffic accident, initial encounter; Y92.410 Unspecified street and highway as the place of occurrence of the external cause; Y99.8 Other external cause status; T88.4XXA Failed or difficult intubation, initial encounter; F17.210 Nicotine dependence, cigarettes, uncomplicated; K74.69 Other cirrhosis of liver; B18.2 Chronic viral hepatitis C; I10 Essential (primary) hypertension; E87.70 Fluid overload, unspecified; E87.6 Hypokalemia; E83.42 Hypomagnesemia; D50.9 Iron deficiency anemia, unspecified; F32.9 Major depressive disorder, single episode, unspecified

== ENCOUNTER 2017-02-15 | Inpatient (IN) | payer OTHER, MEDICARE ==
[2017-02-15] VITALS (19 sets, daily range): BP systolic 81–149; BP diastolic 32–96
[~2017-02-15] VITALS: Ht 160 cm; Wt 100.9 kg
[~2017-02-15] MED LIST: CITALOPRAM HYDR20 MG PO; CORGARD20 MG PO; CYCLOBENZAPRINE10 MG PO; DELTASONE20 MG PO; HCTZ/TRIAMTEREN1 TA1 PO; IPRATROPIUM BROMIDE/ IN; IPRATROPIUM BROMIDE/ INH; LEVO-T112 MCG PO; LIDODERM5 % TOP; TRAMADOL HCL50 MG PO; UROCIT-K 10 PO; VITAMIN D-31000 UNIT PO
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
--- NOTE | 2017-02-15 06:24 | ED CLINICAL REPORT ---
Clinical Report - Physicians/Mid Levels [facility] [address] [place] [address] 02/15/2017 0:04 Patient: ELVIS CORTEZ Time Seen: 0016. Arrived- By ambulance. Historian- patient and EMS personnel. HISTORY OF PRESENT ILLNESS Chief Complaint: DYSPNEA and HISTORY OF CHRONIC OBSTRUCTIVE PULMONARY DISEASE. This started today and is still present. The dyspnea is severe. The dyspnea is worsened by walking, exertion and being in a supine position (nothing improves). The patient has had a cough, dyspnea on exertion, right-sided chest pain and orthopnea. No sputum production, fever, sweating episodes, wheezing or chills. No chest discomfort, calf pain, anxiety, dizziness or tingling. No numbness or palpitations. The patient has had foot swelling (bilateral LE swelling, severe, from feet to thighs). Similar symptoms previously: Milder. Recent medical care: The patient was seen recently at this facility and hospitalized. ( Pt was just admitted for multiple R rib fx in late January. She has a h/o COPD, and states she was SOB throughout her stay in the hospital. Pt states her dyspnea worsened after d/c, to the point where she could hardly breathe at home. Pt states the swelling in her legs started a few days ago, but is worse today.). REVIEW OF SYSTEMS The patient has not had weight loss. No muscle aches, eye irritation, sore throat, nasal discharge or sinus drainage. No nausea, vomiting, abdominal pain, diarrhea or black stools. No bloody stools, headache, fainting episodes, blurred vision or difficulty with urination. No skin rash, enlarged lymph nodes or joint pain. All systems otherwise negative, except as recorded above. PAST HISTORY Problems: COPD - Chronic Obstructive Pulmonary Disease. Esophageal varices . GI Bleeding. Dizziness. Weakness. Difficulty Walking. Immunizations. LNMP - Last Normal Menstrual Period. Thyroid Disease. Diabetes Mellitus. Asthma. Hypertension. Additional Surgeries: Endoscopy. Medications: Citalopram 30 mg daily. HCTZ 25 MG DAILY. Levothyroxine 112 mcg daily. Nadolol 40 mg daily. Trazodone 50 mg 1-2 tabets qhs prn. Vitamin D daily. Allergies: LIsinopril. SOCIAL HISTORY Smoker- current status unknown. No alcohol use or drug use. ADDITIONAL NOTES The nursing notes have been reviewed. PHYSICAL EXAM Vital Signs: 02/15/2017 00:06 BP: 167/89. HR: 110. RR: 28. O2 saturation: 85%. Temp: 97.5 F. Murdock-Diego pain scale: 4/10. Appearance: Alert. Patient in severe distress. Distress appears respiratory. (Pt is conscious, but appears drowsy, and with labored respirations.). Eyes: Pupils equal, round and reactive to light. Eyes normal inspection. ENT: Nose normal. Neck: Normal inspection. CVS: Normal heart rate and rhythm. Heart sounds normal. Pulses normal. Respiratory: Moderate respiratory distress with accessory muscle use and decreased mental status. Speaks short phrases. Prolonged expirations. Moderately decreased air movement in the right lung. No wheezes, stridor, rales or rhonchi. Abdomen: Soft and nontender. Back: Normal inspection. No CVA tenderness. Skin: Skin warm and dry. No rash. Normal skin turgor. Pale. Extremities: Bilateral severe pitting edema of the lower extremities involving both feet, both ankles and both lower legs. Extremities exhibit normal ROM. Neuro: (Pt answers questions with short answers appropriately. She is moving all 4 extremities.). LABS, X-RAYS, AND EKG EKG: EKG time: (0021). Rate: 103. Regular narrow-complex tachycardia. Sinus tachycardia. Occasional narrow-complex and atrial ectopic beats. Normal P waves. Normal TAMI. LVH. Normal axis. Normal QT and QTc. Non-specific ST segment / T wave abnormalities. Prior EKG unavailable. The study has been interpreted contemporaneously by me. The study has been independently viewed by me. The EKG appears to be a good tracing. I agree with and confirm the computer reading of the EKG. Rhythm Strip #1: Time: (0010). Rate= 105. Sinus tachycardia. Regular rhythm. Narrow QRS complexes. No ectopy. Conduction normal. Normal ST segments and T waves. The study was interpreted by me. Chest X-ray: (FINDINGS: The visible cardiac contour is enlarged. Aortic contour is stable. No central venous congestion. Low lung volumes. Interval development of moderate to large right pleural effusion and very small left pleural effusion. Mildly displaced rib fractures on the right from five through seven are visible. IMPRESSION: 1. Interval development of moderate to large right pleural effusion. 2. Cardiomegaly. 3. Right rib fractures.). Views: AP (portable). Technique: good. The X-rays were independently viewed by me and interpreted contemporaneously by me. A comparison with prior films reveals that the findings have worsened. Chest X-ray #2: (Interval placement of ETT.). Views: AP (portable). Technique: good. The X-rays were independently viewed by me and interpreted contemporaneously by me. A comparison with prior films reveals that the findings are new. Chest CT: (FINDINGS: Normal opacification of the pulmonary arterial tree without filling defect. The central pulmonary arteries are normal caliber. Thoracic aorta is normal caliber with mild atherosclerotic calcification. The great vessels demonstrate a normal branching pattern. The heart is shifted to the left. The size is overall normal. No pericardial effusion. No adenopathy or mediastinal masses. The esophagus is normal in caliber without hiatal hernia. The thyroid gland is normal. Large low density right pleural effusion shifting mediastinal structures to the left. Near complete atelectasis of the right lung. Moderate left base atelectasis. Patent airway. Mildly displaced fourth through ninth right rib fractures. The images obtained of the upper abdomen demonstrate a cirrhotic liver and moderate perihepatic and perisplenic ascites. IMPRESSION: 1. No pulmonary embolus. 2. Large right pleural effusion with near complete right lung atelectasis. 3. Cirrhotic liver and moderate upper abdominal ascites. 4. Right rib fractures four through nine 5. Preliminary report by Dr. Ham English of [facility] radiology.). Chest CT performed with contrast. The study was independently viewed by me, interpreted by the radiologist and contemporaneously by me and discussed with the radiologist. Prior studies were not available for comparison. Laboratory Tests: CBC w Diff: (NICHOLAS: 02/15/2017 00:35) ( MsgRcvd 02/15/2017 01:36) Final results Test Result Flag Units (Reference) WHITE BLOOD COUNT 24.8 # H K/uL (4.5-11.5) RED BLOOD COUNT 4.29 M/uL (4.00-5.20) HEMOGLOBIN 11.3 L gm/dL (12.0-16.0) HEMATOCRIT 36.1 % (36.0-46.0) MEAN CELL VOLUME 84 fL (80-100) MEAN CORPUSCULAR HGB 26 pg (26-34) MEAN CORPUSCULAR HGB CONC 31 g/dL (31-37) RED CELL DISTRIBUTION WIDTH 22.7 H % (11.6-14.8) 2+ ANISOCYTOSIS PLATELET COUNT 170 K/uL (150-400) NEUTROPHIL % 92.7 H % (50-75) LYMPH % 2.4 L % (25-40) MONO % 4.9 % (3-14) EOSINOPHIL % 0 % (0-4) BASOPHIL % 0 % (0-2) PT with INR: (NICHOLAS: 02/15/2017 00:35) ( [facility] 02/15/2017 03:24) Final results Test Result Flag Units (Reference) INR 1.3 H (0.8-1.2) Low Intensity Therapy: INR 1.5-2.0 PT range 18.5-23.1Mod.Intensity Therapy: INR 2.0-3.0 PT range 23.1-31.5High Intensity Therapy: INR 2.5-3.5 PT range 27.4-35.5High Intensity Therapy 2: INR 3.0-4.0 PT range 31.5-39.3 Ammonia Level: (NICHOLAS: 02/15/2017 00:35) ( [facility] 02/15/2017 01:02) Final results Test Result Flag Units (Reference) AMMONIA 59 H umol/L (11-32) BNP: (NICHOLAS: 02/15/2017 00:35) ( [facility] 02/15/2017 01:32) Final results Test Result Flag Units (Reference) B-TYPE NATRIURETIC PEPTIDE 41.3 pg/ml (5-100) CHEM 13 PANEL: (NICHOLAS: 02/15/2017 00:35) ( [facility] 02/15/2017 01:06) Final results Test Result Flag Units (Reference) GLUCOSE 211 H mg/dL (70-110) BUN 35 H mg/dL (7-18) CREATININE 1.2 mg/dL (0.6-1.3) Estimated GFR 47.20 mL/min Estimated GFR- 57.21 mL/min Note: Persistent reduction over 3 months in eGFR<60 mL/min/1.73 m2 defines CKD. Patients with eGFR values>=60 mL/min/1.73 m2 may also have CKD if evidence ofpersistent proteinuria. Additional information may be foundat www.kidney.org. SODIUM 141 mmol/L (136-145) POTASSIUM 4.0 # mmol/L (3.5-5.1) CHLORIDE 101 mmol/L (98-107) CARBON DIOXIDE 35 H mmol/L (21-32) CALCIUM 8.9 mg/dL (8.5-10.1) TOTAL PROTEIN 6.4 g/dL (6.4-8.2) ALBUMIN 2.7 L g/dL (3.3-5.0) BILIRUBIN, TOTAL 2.6 H mg/dL (0.0-1.0) ALKALINE PHOSPHATASE 154 H U/L (46-116) AST (SGOT) 28 U/L (15-37) ALT (SGPT) 31 U/L (12-78) MAGNESIUM 1.8 mg/dL (1.8-2.4) CPK 34 U/L (24-260) TROPONIN I 0.13 ng/mL (0.00-1.5) TROPONIN REFERENCE RANGE:<0.1 NEGATIVE0.1-1.5 INDETERMINANT>1.5 POSITIVE . Pulse Oximetry: 02/15/2017 00:06 O2 saturation: 85%. (FIO2-4 liter/min nasal cannula). Interpretation: hypoxemia. PROGRESS AND PROCEDURES Intubation: ED physician at bedside. Intubated with 7.5 cuffed endotracheal tube. Head placed in sniffing position. Preoxygenated. Hyperventilated. Suction was available. Size 3 Rey blade used. Intubated via orotracheal route. Administered induction agent- etomidate and neuromuscular blocking agent- succinylcholine and rocuronium. No complications. Placement confirmed by direct visualization, equal breath sounds and rise and fall of chest wall, chest x-ray and rising O2 saturations. Placement confirmed by end tidal CO2 monitor. Tube secured with device and connected to ventilator. Given propofol post-intubation. A chest x-ray was obtained: showing good tube position. Tube marked at lip. Technique: direct visualization. Procedure successful; one attempt. Chest Tube Insertion: Obtaining consent was limited by clinical urgency. The patient was placed on a monitor, oxygen and IV. The procedure was performed with the patient supine. IV sedation was given. A standard chest tube was used. Tube size: 36 Fr. The tube was placed laterally in the mid-axillary line of the 5th intercostal space on the right side. Sterile technique was used. The area was cleansed with Betadine. Local lidocaine anesthesia was used. The skin was incised with scalpel. The tissue was dissected. A finger was inserted for verification. The tube was inserted and directed superiorly. The tube was secured with nylon sutures. An occlusive dressing was applied. The tube was attached to a drainage system with a flutter valve. Returns of fluid were noted from the chest tube. The patient was clinically improved following the procedure. Post-procedure X-ray was improved and showed good tube position. Central Line Placement: A central line was placed in the right subclavian vein. Consent precluded by urgency of clinical situation. Placed on pulse oximeter and ekg monitor tech. Hand hygiene observed, sterile barrier precautions adhered to (cap, mask, gown, gloves and large sterile sheet) and chlorhexidine skin antisepsis used. Local anesthetic infiltrated. Triple lumen central line placed using Seldinger technique. Good blood return observed. Catheter was secured. Antibiotic ointment applied. Dressing applied. The patient was clinically stable following the procedure. Post-procedure X-ray showed no pneumothorax and good catheter tip position. Course of Care: This pt was evaluated by myself, immediately upon arrival in the ED. She was in significant respiratory distress, and I initially suspected CHF in addition to her known COPD and rib fractures, given the extensive lower extremity edema and severe dyspnea. I gave her doses of NTG and Lasix, as well as a duoneb, without improvement in sx. She was placed on BiPAP which did improve her breathing mildly. Her CXR showed loss of lung volume on the R, with what appeared to be a pleural effusion vs hemothorax to me (radiology interpretation was not available for some hours after the pt's presentation). CTA thorax was also done, considering that after the pt's accident, she had been in bed quite a bit, and was at risk for DVT/PE. This showed no clot, but did show a R tension pleural effusion, with shift of the mediastinal structures to the L. I did feel that the pt should have a chest tube placed immediately, preceding which the pt underwent endotracheal intubation. As I suspected a hemothorax, and possibly blood clot, secondary to the pt's recent chest trauma, I did select a large-bore chest tube. Upon placement, approximately 4 L of serosanguinous fluid came out of the chest tube. Pt did remain hemodynamically stable, with overall improvement in pt's status, and repeat CXR showed reinflation of the R lung. A subclavian central line was also placed, following placement of the chest tube. Work-up showed an unremarkable EKG, normal BNP, ammonia not significantly elevated, and indeterminate troponin. WBC count was significantly elevated. I did speak with Dr. Linda, who agreed to follow the pt for her chest tube, and with Dr. Munoz, who did admit the pt to the CCU. Radiologist did notify me later in the morning, after pt had gone upstairs, that according to the post-intubation x-ray, tube appeared to be right at the richar, and could be pulled back a couple of cm. I did inform them that pt was no longer in the ED, and radiologist stated admitting physician would be notified. Critical care performed (130 minutes). Time is exclusive of separately billable procedures. Time includes: direct patient care, patient reassessment, coordination of patient care, interpretation of data (laboratory data, pulse oximetry, arterial blood gases, chest xrays, prior electrocardiograms and cardiac output measurements), review of patient's medical records, medical consultation and documentation of patient care- see progress notes. Procedures included in critical care time: ventilator management- see progress notes. Procedures excluded from critical care time: central intravenous line placement, intubation and chest tube placement- see progress notes. The patient required critical care due to the acute impairment of vital organ systems (respiratory) and a high probability of imminent and life threatening deterioration. Numerous emergent and urgent interventions were required to prevent sudden life threatening deterioration. Discussed case with on-call health care provider, (Alexei). Reviewed test results. Agreed upon treatment plan. Health care provider will see patient in hospital. Discussed case with on-call health care provider, (Alexander). Reviewed test results and need for additional work-up. Agreed upon treatment plan and decision to admit. Health care provider will see patient in hospital. Old medical records reviewed. Disposition: Admitted to the Critical Care Unit. Condition: critical. CLINICAL IMPRESSION Acute respiratory failure with hypoxemia. Large right pleural effusion (Assoc with trauma). Multiple right rib fractures. (Electronically signed by Ilana Reyes MD 02/27/2017 13:57)
--- NOTE | 2017-02-15 06:24 | ED ORDER SUMMARY ---
..... Patient: ELVIS CORTEZ OrderSheet [facility] VisitID: [id number] [place] [address] 71y, F Registration Date/Time: 02/15/2017 ORDER SHEET Weight: 95.7 kg (stated) Allergies: LIsinopril GENERAL ORDERS: Chest 1V Urgent (00:19 02/15/2017 CBradkhalida R.N. verbal order read back to Josué LEYVA) (0:32 GUnger) CBC w Diff Urgent (00:20 02/15/2017 CBdon R.N. verbal order read back to Josué LEYVA) (0:43 RCollier R.N.) CMP Urgent (00:02/15/2017 Carolyne R.N. verbal order read back to Josué LEYVA) (0:43 RCollier R.N.) Cardiac Panel Stat (00:02/15/2017 Carolyne R.N. verbal order read back to Josué LEYVA) (0:43 RCollier R.N.) ABG (G) Urgent (00:20 02/15/2017 MARYradkhalida R.N. verbal order read back to Josué LEYVA) (0:44 RCollier R.N.) EKG - ER Stat (00:20 02/15/2017 Carolyne R.N. verbal order read back to Josué LEYVA) (0:21 RCollier R.N.) BNP Urgent (00:26 02/15/2017 Carolyne R.N. verbal order read back to Joséu LEYVA) (0:43 RCollier R.N.) Ammonia Level Urgent (00:26 02/15/2017 MARYradkhalida R.N. verbal order read back to Josué LEYVA) (0:44 RCollier R.N.) CTA Thorax w Cont (No) (N/A) Urgent (02:01 02/15/2017 Josué LEYVA) (Ack 2:09 AMcQuoid ER Tech1) (2:45 CBradburn R.N.) PT with INR Urgent (03:13 02/15/2017 Josué LEYVA) (3:15 AMcQuoid ER Tech1) Chest 1V Urgent (04:03 02/15/2017 Josué LEYVA) (Ack 4:10 AMcQuoid ER Tech1) (4:23 Cassie) ABG (G) Urgent (04:31 02/15/2017 Josué LEYVA) (Ack 4:33 AMcQuoid ER Tech1) (5:29 AMcQuoid ER Tech1) Chest 1V Urgent (04:33 02/15/2017 AMcQuoid ER Tech1 per protocol) (Ack 4:34 AMcQuoid ER Tech1) (6:23 Cassie) CBC w Diff Urgent (05:05 02/15/2017 RCollier R.N. verbal order read back to Josué LEYVA) (5:29 AMcQuoid ER Tech1) repeat MEDICATION ORDERS: NitroGLYCERIN SL 0.4 mg (NOW) (00:28 02/15/2017 Josué LEYVA) (Ack 0:29 RCollier R.N.) (0:32 CFalkner R.N.) NitroGLYCERIN Paste Topical 1 in. (NOW, to CW) (00:28 02/15/2017 Josué LEYVA) (Ack 0:29 RCollier R.N.) (0:33 CFalkner R.N.) DuoNeb Neb Tx 1 unit dose (NOW) (00:44 02/15/2017 RCollier R.N. verbal order read back to Josué LEYVA) (Ack 0:44 RCollier R.N.) (1:07 RCollier R.N.) Rocuronium IVP (04:08 02/15/2017 RCollier R.N. verbal order read back to Josué LEYVA) (4:10 RCollier R.N.) - (Rocuronium 50 mg IVP x 1) (04:21 02/15/2017 Josué LEYVA) (Cancelled: Other4:25 RCollier R.N.) Rocuronium IVP (04:21 02/15/2017 Josué LEYVA) (4:24 RCollier R.N.) IV FLUIDS: IV Saline Lock (00:21 02/15/2017 MARYradburn R.N. per protocol) (Ack 0:21 RCollier R.N.) (0:21 CBradburn R.N.) Lasix IV 80 mg (NOW) (00:30 02/15/2017 Josué LEYVA) (Ack 0:31 RCollier R.N.) (0:34 CFalkner R.N.) Succinylcholine IV 100 mg (HIGH ALERT MEDICATION, NOW) (04:07 02/15/2017 RCollier R.N. verbal order read back to Josué LEYVA) (4:12 RCollier R.N.) Amidate IV : initial bolus 10 mg (HIGH ALERT MEDICATION, NOW) (MAY REPEAT PER VERBAL FROM EDMD) (04:07 02/15/2017 RCollier R.N. verbal order read back to Josué LEYVA) (4:10 RCollier R.N.) Propofol Drip IV : initial bolus none, then 0.05 mg/kg/min (TITRATE) (04:18 02/15/2017 Josué LEYVA) (4:32 RCollier R.N.) Propofol IV 50 mg (bolus) (04:36 02/15/2017 RCollier R.N. verbal order read back to Josué LEYVA) (4:37 RCollier R.N.) Dilaudid IV 2 mg (HIGH ALERT MEDICATION, NOW) (04:59 02/15/2017 RCollier R.N. verbal order read back to Josué LEYVA) (5:06 RCollier R.N.) IV NS : initial bolus 1000 mL (1000 mL/hr), then none - (NOW) (05:20 02/15/2017 RCollier R.N. verbal order read back to Josué LEYVA) (5:20 RCollier R.N.) ORDER SHEET NOTES: [Electronically signed by Daniel Nolasco R.N. (13:54 02/15/2017)] [Electronically signed by Ilana Reyes MD (13:57 02/27/2017)] [Electronically locked/signed by Daniel Nolasco R.N. (13:54 02/15/2017)]
--- NOTE | 2017-02-15 07:25 | DIAGNOSTIC IMAGING REPORT ---
PROCEDURE: XR CHEST 1 VIEW INDICATION: SHORTNESS OF BREATH TECHNIQUE: Single view chest. 0028 hours COMPARISON: 02/10/2017 FINDINGS: The visible cardiac contour is enlarged. Aortic contour is stable. No central venous congestion. Low lung volumes. Interval development of moderate to large right pleural effusion and very small left pleural effusion. Mildly displaced rib fractures on the right from five through seven are visible. IMPRESSION: 1. Interval development of moderate to large right pleural effusion. 2. Cardiomegaly. 3. Right rib fractures.
--- NOTE | 2017-02-15 07:33 | DIAGNOSTIC IMAGING REPORT ---
PROCEDURE: CTA THORAX WITH CONTRAST INDICATION: SHORTNESS OF BREATH TECHNIQUE: 88 ml of Isovue 370 was injected intravenously and axial images were obtained of the chest with 3D sagittal and coronal MIP reconstructions. COMPARISON: 02/01/2017 FINDINGS: Normal opacification of the pulmonary arterial tree without filling defect. The central pulmonary arteries are normal caliber. Thoracic aorta is normal caliber with mild atherosclerotic calcification. The great vessels demonstrate a normal branching pattern. The heart is shifted to the left. The size is overall normal. No pericardial effusion. No adenopathy or mediastinal masses. The esophagus is normal in caliber without hiatal hernia. The thyroid gland is normal. Large low density right pleural effusion shifting mediastinal structures to the left. Near complete atelectasis of the right lung. Moderate left base atelectasis. Patent airway. Mildly displaced fourth through ninth right rib fractures. The images obtained of the upper abdomen demonstrate a cirrhotic liver and moderate perihepatic and perisplenic ascites. IMPRESSION: 1. No pulmonary embolus. 2. Large right pleural effusion with near complete right lung atelectasis. 3. Cirrhotic liver and moderate upper abdominal ascites. 4. Right rib fractures four through nine 5. Preliminary report by Dr. Ham [facility] of [facility].
--- NOTE | 2017-02-15 07:36 | DIAGNOSTIC IMAGING REPORT ---
PROCEDURE: XR CHEST 1 VIEW INDICATION: POST-INTUBATION TECHNIQUE: Single view chest. 04:17 hours COMPARISON: 0028 hours FINDINGS: Placement of endotracheal tube. The tip is at the level of the richar and should be withdrawn about 2 cm. Stable heart, deviated to the left. Near complete opacification of the right thorax. Left base atelectasis. Right rib fractures. IMPRESSION: 1. Low placement of endotracheal tube. Findings called to the emergency room. 2. Large right effusion.
--- NOTE | 2017-02-15 07:42 | DIAGNOSTIC IMAGING REPORT ---
PROCEDURE: XR CHEST 1 VIEW INDICATION: Chest tube, central line, nasogastric tube. TECHNIQUE: Single view chest. 06:10 hours COMPARISON: 04:17 hours FINDINGS: The endotracheal tube remains low with the tip at the richar. There has been interval placement of a right subclavian line, nasogastric tube, and right chest tube all which appear in normal position. Interval resolution of large right pleural effusion. Persistent small left lateral lung base atelectasis. There is mild linear horizontal density in the right lung along the path of the chest tube. No pneumothorax. Right rib fractures. Cardiomediastinal contour and central vessels are stable. IMPRESSION: 1. Tubes and lines as described. 2. Interval resolution of right pleural effusion with residual parenchymal density, likely trauma from placement of chest tube. 3. Left lateral base atelectasis. 4. Discussed with Dr. Reyes in the emergency room.
--- NOTE | 2017-02-15 16:06 | History & Physical Report ---
Information Source Information Source: Spouse/Partner Reliability: Fair History Chief Complaint shortness of breath History of Present Illness Patient is a 71-year-old female coming in with shortness of breath and respiratory failure. Patient is a known patient on S was recently discharged from the hospital [facility]. Patient was admitted previously for rib fractures hypercapnia and pneumonia. Patient was treated successfully of all these pathologies and was doing well. Patient was in her normal state of mind yesterday upon discharge and at the rehabilitation center. Patient was able to talk to family and conversation normally throughout the night. However this morning at 5 AM as per rehabilitation facility staff patient became very short of breath. She was seen to be struggling for air and at this time it was decided the patient should go to the hospital. Patient was seen in the hospital by ER staff who recognized the patient was hypoxic. X-ray was done which showed the presence of a pleural effusion however this would not explain the patient's hypoxia. Patient was then sent for CTA under the possibility the patient may have had a pulmonary embolism. CTA showed the presence of a very large right- sided pleural effusion. Patient due to her waxing and waning mental status was intubated and a chest tube was placed. Patient drained 3.8 L upon placement of the chest tube. Patient did not have any resulting lung injury secondary to chest tube placement. Patient however remained intubated and will remain intubated for the foreseeable future. Patient is currently hemodynamically stable. Patient History 1. Lung contusion 2. Respiratory failure, unspecified with hypercapnia 3. HTN (hypertension) 4. Cirrhosis of liver 5. Airway stricture 6. COPD exacerbation 7. Fluid overload, unspecified 8. Pleural effusion Social History Patient is a 71-year-old lady with significant past medical history. Patient does not drink she has a remote smoking history for which she does not smoke anymore but has a [id number] history. Patient does not use any illicit substances. Patient is independent completely at home and manages all her ADLs. Patient lives at home with her however patient is currently coming from [facility] Family History Family history was reviewed; no changes noted. Medications and Allergies Medications Current Medications Sig/Kvng Start time Last Medication Dose Route Stop Time Status Admin Pantoprazole Sodium 40 MG DAILY@0600 02/16 0600 AC 02/16 IV 0528 Sodium Chloride 500 ML ONCE 02/16 0330 AC 02/16 IV 0254 Lactulose 30 GM BID 02/15 2330 AC 02/16 PTUBE 0855 Dextrose/Sodium 1,000 ML ASDIRECTED 02/15 2315 AC 02/16 Chloride IV 1230 Morphine Sulfate 1 MG Q2H PRN 02/15 2045 AC 02/16 IV 0129 Albuterol/Ipratropium 3 ML RTQ6H PRN 02/15 1630 AC IN Propofol 0 TITRATE 02/15 1615 AC 02/16 IV 1008 Ipratropium [place] 0.5 MG RTQ6H 02/15 1400 AC 02/16 IN 1419 Insulin Human Lispro See Dose Q6HR 02/15 1200 AC 02/16 Insts (1) SC 1147 Acetaminophen 650 MG Q4H PRN 02/15 0930 AC PO Enoxaparin Sodium 40 MG QAM 02/15 0920 AC 02/16 SC 0854 Norepinephrine 4 MG ASDIRECTED 02/15 0900 AC 02/16 Bitartrate IV 0911 Dextrose/Water 250 ML Dose Instructions: (1)Insulin Human Lispro: LOW DOSE: ACCUCHECK AND SLIDING SCALE >>To change sliding scale DISCONTINUE this order and enter a NEW order. Thanks< Allergies Coded Allergies: Lisinopril (01/31/17) Review of Systems Constitutional Other (intubated cant speak ). Physical Exam Vital Signs / I&Os Vital Signs Date Time Temp Pulse Resp B/P Pulse O2 O2 Flow FiO2 Ox Delivery Rate 02/16 1609 93 14 112/52 97 Ventilator 40 02/16 1500 99.1 94 14 119/58 97 Ventilator 02/16 1405 98.8 90 14 130/56 97 Ventilator 40 02/16 1315 92 14 128/57 97 Ventilator 40 02/16 1215 92 14 136/57 98 Ventilator 40 02/16 1119 95 14 127/58 97 Ventilator 40 02/16 1013 99.1 95 14 127/54 99 Ventilator 40 02/16 0922 84 14 113/46 97 Ventilator 40 02/16 0823 Ventilator 40 02/16 0812 120/45 / 0808 78 14 98 Ventilator 40 02/16 0711 73 14 108/41 96 Ventilator 40 02/16 0606 98.1 72 111/49 94 Ventilator 40 02/16 0511 98.8 72 117/45 100 Ventilator 40 02/16 0510 98.1 73 117/45 100 Ventilator 40 02/16 0410 98.1 68 14 119/48 95 Ventilator 40 / 0311 98.4 70 131/46 94 Ventilator 40 / 0205 98.6 71 113/43 94 Ventilator 40 / 0100 99.1 103 14 133/42 96 Ventilator 40 06/ 0010 99.0 72 121/41 95 Ventilator 40 06/08 2300 99.3 72 133/44 95 Ventilator 40 / 2204 80 14 120/40 95 Ventilator 40 02/15 2011 86 14 125/35 94 Ventilator 40 02/16 2000 Ventilator 40 02/15 1911 81 14 138/32 95 Ventilator 40 / 1816 98.1 72 14 122/33 93 Ventilator 40 / 1711 75 14 127/39 92 Ventilator 40 I&O 02/15 0800 02/15 1600 02/16 0000 Intake Total 0 2306 Output Total 1491 1526 Balance -1491 780 General Appearance No acute distress, sedated on ventilator currently slightly hypotensive HEENT PERRLA, EOMI, Moist mucous membranes Lungs - good air exchange - no evidnce of ronchi or wheezes Neck Supple, No JVD, No masses Cardiovascular Regular rate and rhythm, No murmurs, gallops, rubs Abdomen - distended, positive fluid wave - not tense - no abdominal pain on palpation Extremities No edema, Normal pulses, No tenderness Skin No Breakdown Neurological No lateralizing signs, - difficult to perform when pt is sedated on propofol Psych/Mental Status - sedated LAB Results Laboratory Tests 02/16 02/16 0420 0500 Blood Gas Sample Site LR Total CO2 (24.0 - 30.0 mmol/L) 35.5 ABG pH (7.35 - 7.45) 7.52 ABG pCO2 at Pt Temp (35 - 45 mmHg) 42.1 ABG pO2 at Pt Temp (60.0 - 80.0 mmHg) 64.6 ABG HCO3 (20.0 - 26.0 mmol/L) 34.2 ABG O2 Sat Calc/Chiquis (95.1 - 100.0 %) 93.5 ABG Base Excess (-6.0 - -6.0 mmol/L) 10.4 ABG Reduced Hgb (%) 6.4 ABG Carboxyhemoglobin (0.5 - 1.5 %) 1.9 ABG Methemoglobin (0.4 - 1.5 %) 0.2 Duong Test YES Other Total Hgb (12.0 - 16.0 g/dL) 10.4 A-a O2 Gradient (7.0 - 14.0 mmHg) 171.5 Hgb O2 Saturation (95.0 - 100.0 %) 91.5 Respiration Rate (/MIN) 14 Vent Mode SIMV FiO2 (20 - 101 %) 40 Tidal Volume (cc) 500 PEEP (cmH2O) 5 Pressure Support (cmH2O) 5 Chemistry Plasma Sodium (136 - 145 mmol/L) 139 Plasma Potassium (3.5 - 5.1 mmol/L) 3.0 Plasma Chloride (98 - 107 mmol/L) 102 CO2 (Enzymatic) (21 - 32 mmol/L) 34 BUN (7 - 18 mg/dL) 26 Creatinine (0.6 - 1.3 mg/dL) 1.1 Est GFR ( Amer) (mL/min) >60 Est GFR (Non-Af Amer) (mL/min) 52.19 Glucose (70 - 110 mg/dL) 191 Plasma Calcium (8.5 - 10.1 mg/dL) 7.6 Plasma Magnesium (1.8 - 2.4 mg/dL) 1.4 Total Bilirubin (0.0 - 1.0 mg/dL) 2.0 AST (15 - 37 U/L) 24 ALT (12 - 78 U/L) 19 Alkaline Phosphatase (46 - 116 U/L) 103 Total Protein (6.4 - 8.2 g/dL) 4.8 Albumin (3.3 - 5.0 g/dL) 1.9 Hematology WBC (4.5 - 11.5 K/uL) 17.6 RBC (4.00 - 5.20 M/uL) 3.80 Hgb (12.0 - 16.0 gm/dL) 9.9 Hct (36.0 - 46.0 %) 31.9 MCV (80 - 100 fL) 84 MCH (26 - 34 pg) 26 RDW (11.6 - 14.8 %) 23.8 Neut % (Auto) (50 - 75 %) 82.0 Lymph % (Auto) (25 - 40 %) 6.9 Pet[place] % (Auto) (3 - 14 %) 8.1 Eos % (Auto) (0 - 4 %) 3.0 Baso % (Auto) (0 - 2 %) 0 Plt Count, EDTA (150 - 400 K/uL) 153 PUBS MCHC (31 - 37 g/dL) 31 Assessment and Plan Problem List 1. Pleural effusion Plan Patient initially presented with shortness of breath Patient was worrisome for possibility of PE Patient was then found to have a very large pleural effusion on CTA Patient was had a chest tube placed and had about 3.8 L drained Upon examination of patient's previous charts there is no evidence of this volume of pleural fusionpresent before Given the rapid accumulation is very worrisome is the fact that this might be evidence of intra-abdominal/diaphragmatic tear This might be translocation of ascites fluid into the lung We'll continue a chest tube drainage We'll send fluid for analysis 2. COPD exacerbation Status Chronic Onset Date Unknown Plan On initial exam patient did not have any evidence of poor air exchange or wheezes Currently patient is breathing appropriately on the ventilator Initially patient had evidence of hypercapnia which resolved after patient was intubated We'll keep the patient intubated for the time being We'll repeat ABGs on a daily basis will patient is intubated 3. Cirrhosis of liver Plan Known history of hepatitis-induced cirrhosis Patient has significant fluid wave on physical exam Will ask the patient to be tapped tomorrow 4. HTN (hypertension) Plan Patient has a known history of hypertension Currently patient is hypotensive We will maintain a levo fed drip for hypotension 5. Lung contusion Plan Currently patient is taking adequate breaths Patient is sedated therefore she shouldn't feel any pain Patient is very sensitive to narcotic agents When treating patients rib fracture be very wary of the amount of pain medication patient receiving 6. Respiratory failure, unspecified with hypercapnia Plan Patient initially presented with hypercapnia ABGs have been improving significantly since intubation We'll continue to get daily ABGs Initial ABG patient had evidence of hypercapnia with appropriate bicarbonate compensation Patient is starting to improve her respiratory and metabolic gases
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
[2017-02-16] VITALS (23 sets, daily range): BP systolic 108–136; BP diastolic 41–59
--- NOTE | 2017-02-16 07:21 | DIAGNOSTIC IMAGING REPORT ---
PROCEDURE: XR CHEST 1 VIEW INDICATION: ON VENT TECHNIQUE: Portable AP view 06:00 a.m. COMPARISON: Chest x-ray 02/15/2017. FINDINGS: ET tube with tip in the right mainstem bronchus which needs to be pulled back 3.5 cm. There is new mild right basilar and perihilar infiltrate/atelectasis and progression of large dense retrocardiac consolidation. Stable right chest tube, right PICC line and NG tube. Mild cardiomegaly. Normal pulmonary vascularity. Normal right rib fractures. IMPRESSION: 1. ET tube tip in the right mainstem bronchus needs to be pulled back 3.5 cm 2. Stable right chest tube, right PICC line and NG tube 3. Progression of large dense retrocardiac consistent with atelectasis. 4. New right perihilar and right basilar infiltrate/atelectasis 5. Results called to Dr. Thompson
--- NOTE | 2017-02-16 16:47 | DIAGNOSTIC IMAGING REPORT ---
PROCEDURE: US ABDOMEN ULTRASOUND-LIMITED INDICATION: ASCITES TECHNIQUE: Galeano scale sonographic images of the abdomen were obtained to evaluate for ascites, possible paracentesis. COMPARISON: CTA thorax 02/15/2017 and ultrasound abdomen 03/01/2017 FINDINGS: There has been overall considerable decrease in the quantity of intra-abdominal ascites in the lower quadrants. The largest pocket is 3 cm deep , inaccessible with a catheter. Paracentesis will be deferred. IMPRESSION: 1. Considerable decrease in the quantity of ascites compared to the prior study. 2. Paracentesis will be deferred. 3. Discussed with Dr. Thompson.
--- NOTE | 2017-02-16 17:09 | Progress Note ---
Subjective General Patient seen and examined this morning. Patient had significant output through the chest tube last night. Patient additionally had a fair amount of thick white secretions. We will send both fluids for analysis. Patient is otherwise hemodynamically stable. Patient is sedated tolerating the ventilator. ABG from this morning looks very good compared to admission. Patient's blood gases have improved significantly there is no current Evidence of hypercapnia Constitutional Other (intubated can't speak). Physical Exam Vital Signs / I&Os Vital Signs Date Time Temp Pulse Resp B/P Pulse O2 O2 Flow FiO2 Ox Delivery Rate 02/16 1609 93 14 112/52 97 Ventilator 40 06/ 1500 99.1 94 14 119/58 97 Ventilator 06/ 1405 98.8 90 14 130/56 97 Ventilator 40 / 1315 92 14 128/57 97 Ventilator 40 / 1215 92 14 136/57 98 Ventilator 40 06/ 1119 95 14 127/58 97 Ventilator 40 06/ 1013 99.1 95 14 127/54 99 Ventilator 40 / 0922 84 14 113/46 97 Ventilator 40 06/ 0823 Ventilator 40 06/ 0812 120/45 06/09 0808 78 14 98 Ventilator 40 06/09 0711 73 14 108/41 96 Ventilator 40 06/09 0606 98.1 72 111/49 94 Ventilator 40 06/09 0511 98.8 72 117/45 100 Ventilator 40 06/09 0510 98.1 73 117/45 100 Ventilator 40 06/09 0410 98.1 68 14 119/48 95 Ventilator 40 06/09 0311 98.4 70 131/46 94 Ventilator 40 06/09 0205 98.6 71 113/43 94 Ventilator 40 06/09 0100 99.1 103 14 133/42 96 Ventilator 40 06/09 0010 99.0 72 121/41 95 Ventilator 40 06/08 2300 99.3 72 133/44 95 Ventilator 40 06/08 2204 80 14 120/40 95 Ventilator 40 /2010 86 14 125/35 94 Ventilator 40 06/08 1999 Ventilator 40 06/08 1911 81 14 138/32 95 Ventilator 40 06/08 1816 98.1 72 14 122/33 93 Ventilator 40 06/08 1711 75 14 127/39 92 Ventilator 40 I&O /08 0800 06/08 1600 02/16 0000 Intake Total 0 2306 Output Total 1491 1526 Balance -1491 780 General Appearance No acute distress HEENT Atraumatic, Moist mucous membranes Lungs lungs bilaterally clear to auscultation No evidence of wheezes or rhonchi Chest tube is in correct position Is draining appropriately Neck Supple, No JVD Cardiovascular Regular rate and rhythm, Normal S1 and S2, No murmurs, gallops, rubs Abdomen Soft, No tenderness, positive fluid wave Extremities trace edema Skin No Breakdown, No Significant Lesions Psych/Mental Status sedated on ventilator LAB Results Laboratory Tests 02/16 02/16 0420 0500 Blood Gas Sample Site LR Total CO2 (24.0 - 30.0 mmol/L) 35.5 ABG pH (7.35 - 7.45) 7.52 ABG pCO2 at Pt Temp (35 - 45 mmHg) 42.1 ABG pO2 at Pt Temp (60.0 - 80.0 mmHg) 64.6 ABG HCO3 (20.0 - 26.0 mmol/L) 34.2 ABG O2 Sat Calc/Chiquis (95.1 - 100.0 %) 93.5 ABG Base Excess (-6.0 - -6.0 mmol/L) 10.4 ABG Reduced Hgb (%) 6.4 ABG Carboxyhemoglobin (0.5 - 1.5 %) 1.9 ABG Methemoglobin (0.4 - 1.5 %) 0.2 Duong Test YES Other Total Hgb (12.0 - 16.0 g/dL) 10.4 A-a O2 Gradient (7.0 - 14.0 mmHg) 171.5 Hgb O2 Saturation (95.0 - 100.0 %) 91.5 Respiration Rate (/MIN) 14 Vent Mode SIMV FiO2 (20 - 101 %) 40 Tidal Volume (cc) 500 PEEP (cmH2O) 5 Pressure Support (cmH2O) 5 Chemistry Plasma Sodium (136 - 145 mmol/L) 139 Plasma Potassium (3.5 - 5.1 mmol/L) 3.0 Plasma Chloride (98 - 107 mmol/L) 102 CO2 (Enzymatic) (21 - 32 mmol/L) 34 BUN (7 - 18 mg/dL) 26 Creatinine (0.6 - 1.3 mg/dL) 1.1 Est GFR ( Amer) (mL/min) >60 Est GFR (Non-Af Amer) (mL/min) 52.19 Glucose (70 - 110 mg/dL) 191 Plasma Calcium (8.5 - 10.1 mg/dL) 7.6 Plasma Magnesium (1.8 - 2.4 mg/dL) 1.4 Total Bilirubin (0.0 - 1.0 mg/dL) 2.0 AST (15 - 37 U/L) 24 ALT (12 - 78 U/L) 19 Alkaline Phosphatase (46 - 116 U/L) 103 Total Protein (6.4 - 8.2 g/dL) 4.8 Albumin (3.3 - 5.0 g/dL) 1.9 Hematology WBC (4.5 - 11.5 K/uL) 17.6 RBC (4.00 - 5.20 M/uL) 3.80 Hgb (12.0 - 16.0 gm/dL) 9.9 Hct (36.0 - 46.0 %) 31.9 MCV (80 - 100 fL) 84 MCH (26 - 34 pg) 26 RDW (11.6 - 14.8 %) 23.8 Neut % (Auto) (50 - 75 %) 82.0 Lymph % (Auto) (25 - 40 %) 6.9 [place] % (Auto) (3 - 14 %) 8.1 Eos % (Auto) (0 - 4 %) 3.0 Baso % (Auto) (0 - 2 %) 0 Plt Count, EDTA (150 - 400 K/uL) 153 PUBS MCHC (31 - 37 g/dL) 31 Assessment and Plan Problem List 1. Respiratory failure, unspecified with hypercapnia Plan - pt presented with sudden onset of shortness of breath - pt was found to have a fluid collection of serous fluid in the amount of 3.8 liters - pts chest tube draining appropriately - respiratory gases have improved with initial presentation of hypercapnia, which has since resolved - will start obtaining blood gases every am - will cotinue with chest tube to suction - will obtain serial daily chest xrays - no etiology for sudden onset of fluid accumulation - stemming from hepatic pathology,however no change in Lfts or presentatino of liver on ct scan 2. Cirrhosis of liver Plan - no exacerbation noted on admission - no change in cougulation profile or liver function tests 3. COPD exacerbation Status Chronic Onset Date Unknown Plan - pts copd was improved on discharge - no evidence of worsening respiratory exam - except for faint crackles where chest tube is placed on other extraneous noises appreciated 4. Pleural effusion Plan - sudden onset of accumulation of 3.8 liters of fluid - must be stemming from hepatic pathology given volume of fluid produced and its transudate quality - no hepatic pahtology noted 5. COPD (chronic obstructive pulmonary disease)
[2017-02-17] VITALS (15 sets, daily range): BP systolic 101–130; BP diastolic 51–65
--- NOTE | 2017-02-17 06:45 | Progress Note ---
Subjective General intubated, sedated can not give any history and can not talk Physical Exam Vital Signs / I&Os Vital Signs Date Time Temp Pulse Resp B/P Pulse O2 O2 Flow FiO2 Ox Delivery Rate 02/17 0559 98.2 93 14 128/52 97 Ventilator 06/ 0510 94 126/53 97 Ventilator 40 06/ 0410 98.2 98 118/58 95 Ventilator 40 06/ 0311 100 14 101/62 95 Ventilator 40 / 0210 98.4 100 126/59 95 Ventilator 40 06/ 0110 96 126/60 96 Ventilator 40 06/ 0010 93 128/54 97 Ventilator 40 02/16 2312 98.4 94 119/59 96 Ventilator 40 02/16 2207 98.6 95 14 111/55 96 Ventilator 40 02/16 1957 40 06/ 1910 98.6 93 14 115/52 96 Ventilator 40 / 1800 89 18 117/55 97 Ventilator 40 / 1700 92 14 122/53 97 Ventilator 40 02/16 1609 93 14 112/52 97 Ventilator 40 02/16 1500 99.1 94 14 119/58 97 Ventilator 06/ 1405 98.8 90 14 130/56 97 Ventilator 40 06/ 1315 92 14 128/57 97 Ventilator 40 / 1215 92 14 136/57 98 Ventilator 40 / 1119 95 14 127/58 97 Ventilator 40 / 1013 99.1 95 14 127/54 99 Ventilator 40 / 0922 84 14 113/46 97 Ventilator 40 / 0823 Ventilator 40 02/16 0812 120/45 /09 0808 78 14 98 Ventilator 40 02/16 0711 73 14 108/41 96 Ventilator 40 I&O 02/17 0000 02/16 1600 02/16 0800 Intake Total 4065 0 Output Total 655 2444 1982 Balance 6200 -5834 -1982 General Appearance sedated Lungs Clear to auscultation (chest tube in place) Neck Supple Cardiovascular Regular rate and rhythm, Normal S1 and S2, No murmurs, gallops, rubs Abdomen Normal bowel sounds, Soft, No tenderness Extremities No edema Skin No Rashes Neurological Normal exam (sedated) Assessment and Plan Problem List 1. Respiratory failure, unspecified with hypercapnia Plan will try pressure support to see how pt, doing after weaning of Propophol temporarly 2. Pleural effusion Plan continue chest tub, ethiology not known 3. Cirrhosis of liver Plan continue lactulose, check amonia level 4. COPD exacerbation Status Chronic Onset Date Unknown Plan stable contineu current management
--- NOTE | 2017-02-17 09:28 | DIAGNOSTIC IMAGING REPORT ---
PROCEDURE: XR CHEST 1 VIEW INDICATION: Respiratory failure. Intubation. TECHNIQUE: Portable AP view (0720 hours). COMPARISON: Compared to chest x-ray on 02/16/2017. FINDINGS: ET tube, NG tube, right PIC line are in satisfactory position. Right chest tube in satisfactory position. No evidence of pneumothorax. Mild volume loss at the right lung base. There is persistent moderate consolidation/volume loss at the left lung base. Heart and mediastinum are normal. Thorax is normal. IMPRESSION: 1. Various tubes in satisfactory position. 2. Persistent left lower lobe consolidation/atelectasis with mild volume loss at the right lung base.
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
--- NOTE | 2017-02-27 13:57 | ED MAR SUMMARY ---
..... Medication Administration Record [facility] [address] [place] [address] Patient: ELVIS CORTEZ Visit ID: [id number] 71y, F Weight: 95.7 kg Height/Length: 62 in BMI: 38.6 ALLERGIES: LIsinopril Given 00:32 02/15/2017 Rosalina Macedo R.N. Medication Administered: NITROGLYCERIN [SL], Dose: 0.4 mg SL. Medication Ordered: NitroGLYCERIN SL 0.4 mg (NOW). Given 00:33 02/15/2017 Rosalina Macedo R.N. Medication Administered: NITROGLYCERIN PASTE [TOPICAL], Dose: 1 in. Topical. Medication Ordered: NitroGLYCERIN Paste Topical 1 in. (NOW, to CW). Given 00:33 02/15/2017 Rosalina Macedo R.N. Medication Administered: LASIX [IVP], Dose: 80 mg IVP over 5 minute(s), Site: #1 right forearm. Medication Ordered: Lasix IV 80 mg (NOW). Given 00:45 02/15/2017 Kourtney Lazcano R.N. Medication Administered: DUONEB [NEB TX] (IPRATROPIUM-ALBUTEROL), Dose: 1 unit dose Nebulizer Neb TX. Medication Ordered: DuoNeb Neb Tx 1 unit dose (NOW). Given 03:54 02/15/2017 Kourtney Lazcano R.N. Medication Administered: AMIDATE [IVP] (ETOMIDATE), Dose: 10 mg IVP over 1 minute(s), Site: #1 right forearm. Medication Ordered: Amidate IV : initial bolus 10 mg (HIGH ALERT MEDICATION, NOW) (MAY REPEAT PER VERBAL FROM EDMD). Given 03:56 02/15/2017 Kourtney Lazcano R.N. Medication Administered: SUCCINYLCHOLINE [IVP], Dose: 100 mg IVP over 1 minute(s), Site: #1 right forearm. Medication Ordered: Succinylcholine IV 100 mg (HIGH ALERT MEDICATION, NOW). Given 04:00 02/15/2017 Kourtney Lazcano R.N. Medication Administered: AMIDATE [IVP] (ETOMIDATE), Dose: 10 mg IVP over 1 minute(s), Site: #1 right forearm. Medication Ordered: Amidate IV : initial bolus 10 mg (HIGH ALERT MEDICATION, NOW) (MAY REPEAT PER VERBAL FROM EDMD). Given 04:01 02/15/2017 Kourtney Lazcano R.N. Medication Administered: ROCURONIUM [IVP], Dose: 10 mg IVP over 1 minute(s), Site: #1 right forearm. Medication Ordered: Rocuronium IVP. Start 04:16 02/15/2017 Kourtney Lazcano R.N. Medication Administered: PROPOFOL [IV DRIP], Dose: 1000 mg Drip IV, Rate: 0.05 mg/kg/min, Dispensed: 100 mL bag, Site: #1 right forearm. Medication Ordered: Propofol Drip IV : initial bolus none, then 0.05 mg/kg/min (TITRATE). Given 04:24 02/15/2017 Kourtney Lazcano R.N. Medication Administered: ROCURONIUM [IVP], Dose: 50 mg IVP over 1 minute(s), Site: #2 right. Medication Ordered: Rocuronium IVP. Given 04:28 02/15/2017 Kourtney Lazcano R.N. Medication Administered: PROPOFOL [IVP], Dose: 50 mg IVP over 2 minute(s), Site: #2 right. Medication Ordered: Propofol IV 50 mg (bolus). Given 04:59 02/15/2017 Kourtney Lazcano R.N. Medication Administered: DILAUDID [IVP] (HYDROMORPHONE HCL PF), Dose: 2 mg IVP over 1 minute(s), Site: #1 right forearm. Medication Ordered: Dilaudid IV 2 mg (HIGH ALERT MEDICATION, NOW). Start 05:18 02/15/2017 Kourtney Lazcano R.N., Stop 06:14 02/15/2017 Kourtney Lazcano R.N. Medication Administered: IV NS (SALINE), Dose: IV Fluids, Rate: 1000 mL/hr, Dispensed: 1000 mL bag, Site: #1 right forearm. Medication Ordered: IV NS : initial bolus 1000 mL (1000 mL/hr), then none - (NOW). Start 06:15 02/15/2017 Kourtney Lazcano RTawny., Continued Upon Admission 07:30 02/15/2017 Daniel Nolasco R.N. Medication Administered: IV NS (SALINE), Dose: IV Fluids, Rate: 100 mL/hr, Dispensed: 1000 mL bag, Site: #1 right forearm. Medication Ordered: IV NS : initial bolus 1000 mL (1000 mL/hr), then none - (NOW).
--- NOTE | 2017-02-27 13:57 | ED MED RECONCILIATION SUMMARY ---
Patient: ELVIS CORTEZ Medication Reconciliation Report [facility] VisitID: [id number] [place] [address] 71y, F Registration Date/Time: 02/15/2017 Weight: 95.7 kg Height/Length: 62 in. BMI: 38.6 ALLERGIES: LIsinopril The patient's Home Medications are listed below: THE FOLLOWING MEDICATIONS NEED TO BE RECONCILED: Citalopram 30 mg daily HCTZ 25 MG DAILY Levothyroxine 112 mcg daily Nadolol 40 mg daily Trazodone 50 mg 1-2 tabets qhs prn Vitamin D daily The source(s) of the original Home Medication information: Not obtained. The following Medications were given to the patient in the Emergency Department: Nitroglycerin [SL] SL 0.4 mg, administered: 02/15/2017 12:32:00 AM NITROGLYCERIN PASTE [TOPICAL] Topical 1 in., administered: 02/15/2017 12:33:00 AM Lasix [IVP] IVP 80 mg, administered: 02/15/2017 12:33:00 AM Duoneb [Neb Tx] Neb TX 1 unit dose, administered: 02/15/2017 12:45:00 AM Rocuronium [IVP] IVP 10 mg, administered: 02/15/2017 4:01:00 AM Amidate [IVP] IVP 10 mg, administered: 02/15/2017 3:54:00 AM Amidate [IVP] IVP 10 mg, administered: 02/15/2017 4:00:00 AM Succinylcholine [IVP] IVP 100 mg, administered: 02/15/2017 3:56:00 AM Rocuronium [IVP] IVP 50 mg, administered: 02/15/2017 4:24:00 AM Propofol [IV Drip] Drip IV bolus 0, then 1000 mg 0.05 mg/kg/min, administered: 02/15/2017 4:16:00 AM PROPOFOL [IVP] IVP 50 mg, administered: 02/15/2017 4:28:00 AM Dilaudid [IVP] IVP 2 mg, administered: 02/15/2017 4:59:00 AM IV NS IV Fluids bolus 0, then 1000 mL/hr, administered: 02/15/2017 5:18:00 AM IV NS IV Fluids bolus 0, then 100 mL/hr, administered: 02/15/2017 6:15:00 AM The following Medications were prescribed to the patient: None.
--- NOTE | 2017-02-27 13:57 | ED MED RECONCILIATION SUMMARY ---
Patient: ELVIS CORTEZ Medication Reconciliation Report [facility] VisitID: [id number] [address] [place] [address] 71y, F Registration Date/Time: 02/15/2017 Weight: 95.7 kg Height/Length: 62 in. BMI: 38.6 ALLERGIES: LIsinopril The patient's Home Medications are listed below: THE FOLLOWING MEDICATIONS NEED TO BE RECONCILED: Citalopram 30 mg daily HCTZ 25 MG DAILY Levothyroxine 112 mcg daily Nadolol 40 mg daily Trazodone 50 mg 1-2 tabets qhs prn Vitamin D daily The source(s) of the original Home Medication information: Not obtained. The following Medications were given to the patient in the Emergency Department: Nitroglycerin [SL] SL 0.4 mg, administered: 02/15/2017 12:32:00 AM NITROGLYCERIN PASTE [TOPICAL] Topical 1 in., administered: 02/15/2017 12:33:00 AM Lasix [IVP] IVP 80 mg, administered: 02/15/2017 12:33:00 AM Duoneb [Neb Tx] Neb TX 1 unit dose, administered: 02/15/2017 12:45:00 AM Rocuronium [IVP] IVP 10 mg, administered: 02/15/2017 4:01:00 AM Amidate [IVP] IVP 10 mg, administered: 02/15/2017 3:54:00 AM Amidate [IVP] IVP 10 mg, administered: 02/15/2017 4:00:00 AM Succinylcholine [IVP] IVP 100 mg, administered: 02/15/2017 3:56:00 AM Rocuronium [IVP] IVP 50 mg, administered: 02/15/2017 4:24:00 AM Propofol [IV Drip] Drip IV bolus 0, then 1000 mg 0.05 mg/kg/min, administered: 02/15/2017 4:16:00 AM PROPOFOL [IVP] IVP 50 mg, administered: 02/15/2017 4:28:00 AM Dilaudid [IVP] IVP 2 mg, administered: 02/15/2017 4:59:00 AM IV NS IV Fluids bolus 0, then 1000 mL/hr, administered: 02/15/2017 5:18:00 AM IV NS IV Fluids bolus 0, then 100 mL/hr, administered: 02/15/2017 6:15:00 AM The following Medications were prescribed to the patient: None.
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
--- NOTE | 2017-02-27 13:57 | ED MAR SUMMARY ---
..... Medication Administration Record [facility] [address] [place] [address] Patient: ELVIS CORTEZ Visit ID: [id number] 71y, F Weight: 95.7 kg Height/Length: 62 in BMI: 38.6 ALLERGIES: LIsinopril Given 00:32 02/15/2017 Rosalina Macedo R.N. Medication Administered: NITROGLYCERIN [SL], Dose: 0.4 mg SL. Medication Ordered: NitroGLYCERIN SL 0.4 mg (NOW). Given 00:33 02/15/2017 Rosalina Macedo R.N. Medication Administered: NITROGLYCERIN PASTE [TOPICAL], Dose: 1 in. Topical. Medication Ordered: NitroGLYCERIN Paste Topical 1 in. (NOW, to CW). Given 00:33 02/15/2017 Rosalina Macedo R.N. Medication Administered: LASIX [IVP], Dose: 80 mg IVP over 5 minute(s), Site: #1 right forearm. Medication Ordered: Lasix IV 80 mg (NOW). Given 00:45 02/15/2017 Kourtney Lazcano R.N. Medication Administered: DUONEB [NEB TX] (IPRATROPIUM-ALBUTEROL), Dose: 1 unit dose Nebulizer Neb TX. Medication Ordered: DuoNeb Neb Tx 1 unit dose (NOW). Given 03:54 02/15/2017 Kourtney Lazcano R.N. Medication Administered: AMIDATE [IVP] (ETOMIDATE), Dose: 10 mg IVP over 1 minute(s), Site: #1 right forearm. Medication Ordered: Amidate IV : initial bolus 10 mg (HIGH ALERT MEDICATION, NOW) (MAY REPEAT PER VERBAL FROM EDMD). Given 03:56 02/15/2017 Kourtney Lazcano R.N. Medication Administered: SUCCINYLCHOLINE [IVP], Dose: 100 mg IVP over 1 minute(s), Site: #1 right forearm. Medication Ordered: Succinylcholine IV 100 mg (HIGH ALERT MEDICATION, NOW). Given 04:00 02/15/2017 Kourtney Lazcano R.N. Medication Administered: AMIDATE [IVP] (ETOMIDATE), Dose: 10 mg IVP over 1 minute(s), Site: #1 right forearm. Medication Ordered: Amidate IV : initial bolus 10 mg (HIGH ALERT MEDICATION, NOW) (MAY REPEAT PER VERBAL FROM EDMD). Given 04:01 02/15/2017 Kourtney Lazcano R.N. Medication Administered: ROCURONIUM [IVP], Dose: 10 mg IVP over 1 minute(s), Site: #1 right forearm. Medication Ordered: Rocuronium IVP. Start 04:16 02/15/2017 Kourtney Lazcano R.N. Medication Administered: PROPOFOL [IV DRIP], Dose: 1000 mg Drip IV, Rate: 0.05 mg/kg/min, Dispensed: 100 mL bag, Site: #1 right forearm. Medication Ordered: Propofol Drip IV : initial bolus none, then 0.05 mg/kg/min (TITRATE). Given 04:24 02/15/2017 Kourtney Lazcano R.N. Medication Administered: ROCURONIUM [IVP], Dose: 50 mg IVP over 1 minute(s), Site: #2 right. Medication Ordered: Rocuronium IVP. Given 04:28 02/15/2017 Kourtney Lazcano R.N. Medication Administered: PROPOFOL [IVP], Dose: 50 mg IVP over 2 minute(s), Site: #2 right. Medication Ordered: Propofol IV 50 mg (bolus). Given 04:59 02/15/2017 Kourtney Lazcano R.N. Medication Administered: DILAUDID [IVP] (HYDROMORPHONE HCL PF), Dose: 2 mg IVP over 1 minute(s), Site: #1 right forearm. Medication Ordered: Dilaudid IV 2 mg (HIGH ALERT MEDICATION, NOW). Start 05:18 02/15/2017 Kourtney Lazcano R.N., Stop 06:14 02/15/2017 Kourtney Lazcano R.N. Medication Administered: IV NS (SALINE), Dose: IV Fluids, Rate: 1000 mL/hr, Dispensed: 1000 mL bag, Site: #1 right forearm. Medication Ordered: IV NS : initial bolus 1000 mL (1000 mL/hr), then none - (NOW). Start 06:15 02/15/2017 Kourtney Lazcano RTawny., Continued Upon Admission 07:30 02/15/2017 Daniel Nolasco R.N. Medication Administered: IV NS (SALINE), Dose: IV Fluids, Rate: 100 mL/hr, Dispensed: 1000 mL bag, Site: #1 right forearm. Medication Ordered: IV NS : initial bolus 1000 mL (1000 mL/hr), then none - (NOW).
== END 2017-02-17 15:58 | disposition short-term general hospital (02) | DRG 208 ==
LOC: ED SRH → TRANS SRH 06:16 → CC SRH 07:45
PROVIDERS: ADMIT Internal Medicine
PROC: 0W9900Z Drainage of Right Pleural Cavity with Drainage Device, Open Approach (ICD-10-PCS; principal; 2017-02-15)
PROC: 5A1945Z Respiratory Ventilation, 24-96 Consecutive Hours (ICD-10-PCS; 2017-02-15)
PROC: 0BH17EZ Insertion of Endotracheal Airway into Trachea, Via Natural or Artificial Opening (ICD-10-PCS; 2017-02-15)
PROC: 0T9B70Z Drainage of Bladder with Drainage Device, Via Natural or Artificial Opening (ICD-10-PCS; 2017-02-15)
PROC: 0D9670Z Drainage of Stomach with Drainage Device, Via Natural or Artificial Opening (ICD-10-PCS; 2017-02-15)
DX: J96.02 Acute respiratory failure with hypercapnia (principal); S27.321A Contusion of lung, unilateral, initial encounter; J91.8 Pleural effusion in other conditions classified elsewhere; S22.41XA Multiple fractures of ribs, right side, initial encounter for closed fracture; R18.8 Other ascites; J44.1 Chronic obstructive pulmonary disease with (acute) exacerbation; I85.10 Secondary esophageal varices without bleeding; V89.2XXA Person injured in unspecified motor-vehicle accident, traffic, initial encounter; K74.69 Other cirrhosis of liver; B18.2 Chronic viral hepatitis C; I95.9 Hypotension, unspecified; E03.9 Hypothyroidism, unspecified; E88.09 Other disorders of plasma-protein metabolism, not elsewhere classified; Z87.891 Personal history of nicotine dependence; R39.198 Other difficulties with micturition; I10 Essential (primary) hypertension